=== PATIENT | male | born 1980 | race Two or more races ===

== ENCOUNTER 2020-09-21 16:35 | Emergency (ER) | payer OTHER, SELFPAY ==
[2020-09-21 17:00] VITALS: BP 118/75; PULSE 101; RESP 18; TEMP 36.7; O2SAT 95; BMI 40.8
--- NOTE | 2020-09-21 17:39 | ED.GENADULT ---
HPI - General Adult General Chief complaint: General Medical Stated complaint: lump on head Time Seen by Provider: 09/21/20 17:23 Source: patient Mode of arrival: ambulatory Limitations: no limitations History of Present Illness HPI narrative: 39 yo male here with lump to back of head x several days. No fevers, chills. Related Data Previous Rx's Medication Instructions Recorded sulfamethoxazole-trimethoprim 1 tab PO Q12H #14 tab 09/21/20 [Bactrim DS] Allergies Allergy/AdvReac Type Severity Reaction Status Date / Time doxycycline [DOXYCYCLINE] Allergy Intermediate LIP Verified 09/21/20 17:00 [place] Review of Systems Review of Systems: Yes all other systems are reviewed and are negative Constitutional: Constitutional: Reports no additional constitutional complaints, Denies body ache(s), Denies chills, Denies fever(s), Denies headache(s) and Denies weakness Eyes: Eyes: Reports no additional eye complaints and Denies change in vision ENT: Reports system reviewed and no additional complaints, except as documented, Denies dizziness, Denies headache(s), Denies nasal congestion, Denies nasal discharge and Denies neck pain Cardiovascular: Cardiovascular: Reports no additional cardiovascular complaints, Denies chest pain, Denies leg edema and Denies dyspnea Respiratory: Respiratory: Reports no additional respiratory complaints, Denies cough and Denies dyspnea Gastrointestinal: Gastrointestinal: Reports no additional gastrointestinal complaints, Denies abdominal pain, Denies diarrhea, Denies nausea and Denies vomiting Genitourinary: Genitourinary: Denies urinary incontinence Musculoskeletal: Musculoskeletal: Reports no additional musculoskeletal complaints, Denies back pain, Denies arthralgias, Denies joint swelling, Denies neck pain, Denies numbness and Denies tingling Integumentary/Breasts: Skin/Breast: Reports system reviewed and no additional complaints, except as docu, Reports swelling, Reports erythema and Denies rash Neurologic: Reports system reviewed and no additional complaints, except as documented, Denies Abnormal speech present, Denies dizziness, Denies headache(s), Denies numbness, Denies tingling and Denies weakness PMFSH Past Medical History Attestation statement: The following information was validated with the patient. Source: old records reviewed and nursing notes reviewed Medical History Asthma Obesity Surgical History History of appendectomy Social History Social History Advance Directives: No Advance Directives Information Provided: No Physical Exam Vital Signs: Vital Signs: Last Vital Signs Temp 98.1 F 09/21/20 17:00 Pulse 101 H 09/21/20 17:00 Resp 18 09/21/20 17:00 BP 118/75 09/21/20 17:00 Pulse Ox 95 09/21/20 17:00 Body Mass Index 40.8 Const: General: cooperative, healthy appearing, comfortable and no acute distress Orientation/consciousness: patient oriented x3 Limitations: no limitations HENMT: Head: Yes normal to inspection Head images: 1. local area of erythema, swelling and induration with tenderness Ears: hearing grossly normal bilaterally General nose exam: Normal external nose present Face and sinus: Yes normal facial exam Mouth: Normal oral and palatal mucosa present Throat: Yes posterior oropharynx normal Eyes: General: appearance normal, both eyes and all related structures Pupils: Equal, round and reactive pupils present Neck: Neck: Yes normal visual inspection Chest: Chest palpation & inspection: normal inspection of the chest Resp: Effort & Inspection: normal respiratory effort Auscultation: clear to auscultation bilaterally Cardio: Rate: regular rate Rhythm: regular rhythm Peripheral pulses: Peripheral pulses 2+ throughout GI: Inspection: Yes normal to inspection Palpation (GI): Soft to palpation and nontender Auscultation: normal bowel sounds Back/Spine/Pelvis: Thoracic/Lumbar Spine: thoracic and lumbar spine normal to inspection Skin: General skin exam: no rashes or lesions noted Neuro: General: patient oriented x3, no focal motor deficits and normal sensation to monofilament Cranial nerves: Yes Equal, round and reactive pupils present Cognition (Neuro): normal cognition Speech: No Abnormal speech present Gait exam (Neuro): Normal gait present Motor exam (neuro): 5/5 motor strength present throughout Extrem: General: Yes normal to inspection Course Course Course Narrative: Small abscess to the posterior head. See I and D note. Will start patient on oral antibiotic Reviewed worrisome signs and symptoms of when to return to the emergency department. Comfortable discharge home. Procedures Abscess I/D Site: scalp Local Anesthetic: lidocaine 2% Amount of anesthesia used (mL): 5 Technique: incised with blade Sent for culture/gram staining?: No Irrigation: No Packing used?: iodoform Complications: pain Medical Decision Making Medical Records Medical records reviewed: Yes I reviewed the patient's medical records. Lab Data Lab results reviewed: Yes I reviewed the patient's lab results. Discharge Plan Discharge Clinical Impression: Abscess Patient Disposition: Home, Self-Care Instructions: Abscess (ED) Additional Instructions: packing removal in 48 hrs Prescriptions: New sulfamethoxazole-trimethoprim [Bactrim DS] 800-160 mg tablet 1 tab PO Q12H Qty: 14 RF: 0 Referrals: Yfn Medeiros MD [Primary Care Provider] - 2 days Interventions: ED Discharge Assessment Last Done: 09/21/20 18:13 Discharge Date/Time: 09/21/20 18:16
[2020-09-21] MEDS: Lidocaine HCl 2 % MPF 5 ML VIAL SUBCUT (17:44)
--- NOTE | 2020-09-21 18:15 | PC.NURSE ---
ABSCESS CLEANED AND DRAINED AND PACKING PLACED BY SUMAN BENDER TO COVER AREA.
== END 2020-09-21 18:16 | disposition home or self-care (01) ==
LOC: HO.ED 17:39
PROVIDERS: Emergency Provider Internal Medicine; PCP Internal Medicine
DX: L02.811 Cutaneous abscess of head [any part, except face] (principal); R22.0 Localized swelling, mass and lump, head
CPT/HCPCS: 10060; 99283

== ENCOUNTER 2021-04-08 09:32 | Outpatient (REF) | payer OTHER, SELFPAY ==
[2021-04-08 09:41] LABS: MANUAL DIFF FLAG NO
[2021-04-08 10:00] LABS: Basophils Percent Auto 0.4 % (0-2); Eosinophils Absolute Auto 0.1 X10*3/uL (0.0-0.4); Eosinophils Percent Auto 1.2 % (0-4); Hematocrit 46.8 % (42.0-52.0); Hemoglobin 15.5 g/dl (14.0-18.0); Imm Gran Abs Auto 0.03 X10*3/uL (0.00-0.03); Imm Gran Pct Auto 0.4 % (0.0-0.4); Lymphocytes Absolute Auto 2.2 X10*3/uL (1.2-4.9); Lymphocytes Percent Auto 26.2 % (20-40); Mean Corpuscular HGB Conc 33.1 g/dl (31.0-36.0); Mean Corpuscular Volume 90.5 fL (80.0-98.0); Mean Platelet Volume 9.4 fL (9.4-12.4); Monocytes Percent Auto 12.5 % (2-11); Neutrophils Absolute Auto 4.9 x10*3/uL (2.0-8.3); Neutrophils Percent Auto 59.3 % (45-73); Platelet Count 258 X10*3/uL (160-400); Red Blood Count 5.17 X10*6/uL (4.60-5.80); Red Cell Distribution Width 12.5 % (11.0-16.0); White Blood Count 8.3 X10*3/uL (4.8-10.8)
[2021-04-08 10:28] LABS: Alanine Aminotransferase 35 U/L (0-40); Albumin Level 3.9 g/dL (3.5-5.0); Alkaline Phosphatase 56 U/L (39-117); Anion Gap 13 (12-20); Aspartate Amino Transferase 16 U/L (5-37); Bilirubin Total 0.5 mg/dL (0.0-1.0); Blood Urea Nitrogen 16 mg/dL (9-16); Calcium 9.1 mg/dL (8.4-10.2); Carbon Dioxide 26 mmol/L (22-29); Chloride 105 mmol/L (96-108); Cholesterol 138 mg/dL; Estimated Glomerular Filt Rate > 60; Glucose Fasting 90 mg/dL (60-99); HDL Cholesterol 35 mg/dL; LDL Cholesterol Calculated 82 mg/dl; Potassium 4.6 mmol/L (3.3-5.1); Sodium 139 mmol/L (135-145); Triglycerides 105 mg/dL
[2021-04-08 10:36] LABS: Estimated Average Glucose 140 mg/dL; Hemoglobin A1c % 6.5 %
[2021-04-08 10:56] LABS: TSH reflex Free T4 0.91 uIU/mL (0.32-4.0)
== END 2021-04-08 09:33 | disposition home or self-care (01) ==
LOC: HO.LAB 09:32
PROVIDERS: PCP Nurse Practitioner Family; Visit Provider Nurse Practitioner Family
DX: E78.00 Pure hypercholesterolemia, unspecified (principal); E11.9 Type 2 diabetes mellitus without complications; I10 Essential (primary) hypertension; G47.30 Sleep apnea, unspecified; G47.9 Sleep disorder, unspecified
CPT/HCPCS: 36415; 80053; 80061; 83036; 84443; 85025

== ENCOUNTER → 2021-05-11 15:15 | Outpatient (REF) | payer OTHER, SELFPAY | LOC: HO.SL 15:15 | PROVIDERS: Visit Provider Nurse Practitioner Family | DX: G47.30 Sleep apnea, unspecified (principal) | CPT/HCPCS: 95806 ==

== ENCOUNTER → 2021-05-21 09:58 | Outpatient (BNVA) | payer OTHER, SELFPAY | PROVIDERS: PCP Nurse Practitioner Family; Visit Provider Physician Assistant Surgical | DX: E66.01 Morbid (severe) obesity due to excess calories (principal); Z68.42 Body mass index [BMI] 45.0-49.9, adult | CPT/HCPCS: 99202 ==

== ENCOUNTER 2021-06-08 09:36 | Outpatient (REF) | payer OTHER, SELFPAY ==
--- NOTE | ~2021-06-08 | XR_ITS ---
EXAMINATION: XR CHEST CLINICAL INFORMATION: Morbid obesity due to excess calories. Sleep apnea. Shortness of breath. COMPARISON: 05/01/2018 TECHNIQUE: 2 views of the chest were obtained. FINDINGS: The lungs are well expanded. There is no focal consolidation, edema, or effusion. No pneumothorax. The cardiomediastinal silhouette is within normal limits. No acute osseous abnormality. XR/XR chest 2V IMPRESSION: Clear lungs.
--- NOTE | 2021-06-08 09:46 | ECG_ITS ---
Test Reason : e66.01 Blood Pressure : / mmHG Vent. Rate : 097 BPM Atrial Rate : 097 BPM P-R Int : 142 ms QRS Dur : 082 ms QT Int : 338 ms P-R-T Axes : 050 074 026 degrees QTc Int : 429 ms Normal sinus rhythm Normal ECG When compared with ECG of 11-SEP-2008 05:48, No significant change was found Referred By: Emile Jauregui Electronically Signed By:KUNAL WATERS MD
[2021-06-08 11:14] LABS: C Reactive Protein 0.95 mg/dL (< or = 0.50); Iron 84 mcg/dL (45-160); Percent Iron Saturation 30 % (15-50); Total Iron Binding Capacity 284 mcg/dL (228-428); Unsaturated Iron Binding 200 ug/dL
[2021-06-08 11:23] LABS: Ferritin 83 ng/mL (20-250)
[2021-06-08 12:32] LABS: Folate 12.7 ng/mL (> or = 4.0); Vitamin B12 645 pg/mL (200-900)
[2021-06-09 13:27] LABS: Calcium (PTHI) 8.4 mg/dL (8.6-10.3); PTHI 73 pg/mL (16-77)
[2021-06-12 13:41] LABS: Zinc 69 mcg/dL (60-130)
[2021-06-13 09:07] LABS: Vitamin B1 13 nmol/L (8-30)
[2021-06-14 22:36] LABS: Vitamin A 45 mcg/dL (38-98)
== END 2021-06-08 09:37 | disposition home or self-care (01) ==
LOC: HO.LAB 09:36
PROVIDERS: PCP Nurse Practitioner Family; Visit Provider Physician Assistant Surgical
DX: Z01.818 Encounter for other preprocedural examination (principal); E66.01 Morbid (severe) obesity due to excess calories
CPT/HCPCS: 36415; 71046; 82306; 82607; 82728; 82746; 83540; 83970; 84425; 84590; 84630; 86140; 93005

== ENCOUNTER 2021-06-09 09:22 | Outpatient (REF) | payer OTHER, SELFPAY ==
[2021-06-12 11:07] LABS: H Pylori Breath Test Positive (Negative)
== END 2021-06-09 09:23 | disposition home or self-care (01) ==
LOC: HO.LNP 09:22
PROVIDERS: Visit Provider Physician Assistant Surgical
DX: E66.01 Morbid (severe) obesity due to excess calories (principal)
CPT/HCPCS: 83013

== ENCOUNTER → 2021-06-09 10:54 | Outpatient (BNVA) | payer OTHER, SELFPAY | PROVIDERS: PCP Nurse Practitioner Family; Referring Provider Nurse Practitioner Family; Visit Provider Dietitian, Registered | DX: E66.01 Morbid (severe) obesity due to excess calories (principal); Z68.43 Body mass index [BMI] 50.0-59.9, adult; Z71.3 Dietary counseling and surveillance; Z11.0 Encounter for screening for intestinal infectious diseases | CPT/HCPCS: 97802; 99211 ==

== ENCOUNTER → 2021-06-10 08:20 | Outpatient (BNVA) | payer OTHER, SELFPAY | PROVIDERS: PCP Nurse Practitioner Family; Visit Provider Surgery | DX: Z13.89 Encounter for screening for other disorder (principal) ==

== ENCOUNTER → 2021-06-30 08:20 | Outpatient (BNVA) | payer OTHER, SELFPAY | PROVIDERS: PCP Nurse Practitioner Family; Referring Provider Physician Assistant Surgical; Visit Provider Dietitian, Registered | DX: Z13.89 Encounter for screening for other disorder (principal) ==

== ENCOUNTER → 2021-07-08 08:20 | Outpatient (BNVA) | payer OTHER, SELFPAY | PROVIDERS: PCP Nurse Practitioner Family; Referring Provider Physician Assistant Surgical; Visit Provider Dietitian, Registered | DX: E66.01 Morbid (severe) obesity due to excess calories (principal) | CPT/HCPCS: 97803 ==

== ENCOUNTER 2021-07-09 09:06 | Outpatient (REF) | payer OTHER, SELFPAY | END 2021-07-09 09:07 | disposition home or self-care (01) | LOC: HO.US 09:06 | PROVIDERS: PCP Nurse Practitioner Family; Visit Provider Surgery | DX: Z13.89 Encounter for screening for other disorder (principal) ==

== ENCOUNTER → 2021-08-11 14:00 | Outpatient (BNVA) | payer OTHER, SELFPAY | PROVIDERS: PCP Nurse Practitioner Family; Visit Provider Counselor Mental Health | DX: F33.0 Major depressive disorder, recurrent, mild (principal); F50.81 Binge eating disorder; E66.01 Morbid (severe) obesity due to excess calories | CPT/HCPCS: 90791 ==

== ENCOUNTER 2021-08-27 09:25 | Outpatient (REF) | payer OTHER, SELFPAY ==
[2021-08-30 15:44] LABS: H Pylori Breath Test Negative (Negative)
== END 2021-08-27 09:26 | disposition home or self-care (01) ==
LOC: CF 09:25
PROVIDERS: PCP Nurse Practitioner Family; Visit Provider Physician Assistant Surgical
DX: Z01.818 Encounter for other preprocedural examination (principal)
CPT/HCPCS: 36415; 83013; 99211

== ENCOUNTER 2021-09-14 08:26 | Outpatient (REF) | payer OTHER, SELFPAY ==
--- NOTE | ~2021-09-14 | US_ITS ---
EXAMINATION: US COMPLETE ABDOMEN WITH LIVER ELASTOGRAPHY CLINICAL INFORMATION: Obesity COMPARISON: Previous CT of the abdomen and pelvis January 2019 TECHNIQUE: Real-time imaging of the abdominal viscera. Noninvasive ultrasound liver fibrosis assessment is performed using [employer]on Elast[employer] point quantification shear wave elastography (2D-SWE) with a C5-2 MHz transducer. Multiple elastography samples are obtained. FINDINGS: PANCREAS: The visualized pancreatic head and body are normal in appearance. The remainder of the pancreas is obscured from visualization by the overlying bowel gas. ABDOMINAL AORTA: The proximal, middle, and distal aortic segments are normal in caliber. INFERIOR VENA CAVA: Visualized portions are normal. LIVER: Liver echotexture is increased probably representing fatty infiltration. The liver is normal in contour and upper normal in size. Areas of focal fatty sparing adjacent to the gallbladder. No focal lesion or intrahepatic biliary duct dilatation. The right lobe measures 18 cm in length. The left lobe measures 16 cm in length. Portal flow is normal/hepatopedal Shear wave liver elastography median stiffness is 1.8 m/s (reference: normal median stiffness is 1.3 m/s or less). IQR/median stiffness to assess sampling precision is 0.04 (reference: good quality data set is IQR/median stiffness of 0.15 or less). GALLBLADDER: There is ring down artifact suggestive of adenomyomatosis of the gallbladder wall. The gallbladder is physiologically distended without evidence of stones, sludge, polyps, wall thickening or pericholecystic fluid. COMMON BILE DUCT: Normal in caliber measuring 0.2 cm in diameter. RIGHT KIDNEY: There is a 1.5 x 2 cm cyst in the midpole.. No hydronephrosis. No renal calculi. The kidney measures 14 cm in maximum dimension. LEFT KIDNEY: Normal. No hydronephrosis. No renal calculi or focal parenchymal lesions. The kidney measures 14 cm in maximum dimension. SPLEEN: Normal. The spleen measures 11 cm in maximum dimension. FREE FLUID: None. US/US abdomen comp w elastography IMPRESSION: 1. Impression: echogenic liver suggestive of fatty infiltration. Adenomyomatosis of the gallbladder wall. Small right renal cyst. Limited visualization of the tail of the pancreas. 2. Liver elastography: Adequate liver sampling. Suggestive of compensated advanced chronic liver disease but need further test for confirmation. REFERENCE: Society of Radiologists in Ultrasound Liver Stiffness Thresholds (2020): LIVER STIFFNESS THRESHOLDS: *Liver Stiffness equal or less than 1.3 m/s: High probability of being normal. *Liver Stiffness less than 1.7 m/s: In the absence of other known clinical signs, rules out compensated advanced chronic liver disease. *Liver Stiffness 1.7-2.1 m/s: Suggestive of compensated advanced chronic liver disease but need further test for confirmation. *Liver Stiffness over 2.1 m/s: Rules in compensated advanced chronic liver disease. *Liver Stiffness over 2.4 m/s: Suggestive of clinically significant portal hypertension. QUALITY OF DATA SET: *IQR/Median value equal or less than 0.15 implies a quality data set. *IQR/Median value over 0.15 implies a poor quality data set. SIGNIFICANT CHANGE FROM PRIOR EXAM: Significant change if liver stiffness measurement is 10% or greater from prior exam. OTHER CONSIDERATIONS: The stage of liver fibrosis may be overestimated in the setting of acute hepatitis, liver inflammation, elevated liver function tests, hepatic vascular congestion, obstructive cholestasis, non-fasting state, and infiltrative diseases such as amyloidosis and lymphoma. In some patients with NAFLD, the liver stiffness thresholds for compensated advanced chronic liver disease may be lower. In causes other than viral hepatitis and NAFLD, liver stiffness thresholds are not well established.
--- NOTE | ~2021-09-14 | FL_ITS ---
EXAMINATION: XR FLUOROSCOPY UPPER GI WITH AIR CLINICAL INFORMATION: Obesity COMPARISON: None TECHNIQUE: Upper GI was performed using thin and thick barium and effervescent granules. FINDINGS: Esophageal motility is normal. No hernia or reflux is seen. The stomach and duodenum are normal. No fold thickening, mass, ulcer or stricture is seen. FLUOROSCOPY TIME: 0.5 DOSE AREA PRODUCT: 7.7 rubi per centimeter squared. 18 saved fluoroscopic images. FL/FL upper GI w air IMPRESSION: Unremarkable examination.
== END 2021-09-14 08:27 | disposition home or self-care (01) ==
LOC: HO.US 08:26
PROVIDERS: Visit Provider Surgery
DX: E66.01 Morbid (severe) obesity due to excess calories (principal)
CPT/HCPCS: 74246; 76705; 76981

== ENCOUNTER 2021-10-07 11:27 | Emergency (ER) | payer OTHER, SELFPAY ==
[2021-10-07 12:29] VITALS: BP 132/78; PULSE 90; RESP 16; TEMP 36.6; O2SAT 94; BMI 30.7
--- NOTE | 2021-10-07 13:08 | ED_ITS ---
HPI - Wound/Laceration General Chief Complaint: Wound/Laceration Stated Complaint: cut finger R hand inj Time Seen by Provider: 10/07/21 12:47 Source: patient Mode of arrival: ambulatory History of Present Illness HPI narrative: 40-year-old male with a past medical history of asthma and obesity presenting to the emergency department with a right index finger laceration. The patient states that he was cutting some sheet rock with a new utility knife, when he accidentally cut his right index finger. He said he grabbed a t-shirt to stop the bleeding and came right to the ED. Patient reports getting a tetanus shot 3- 4 years ago, following another work injury. Patient denies any fever, chills, shortness of breath, or chest pain. Onset (ago): hour(s) Related Data Previous Rx's Medication Instructions Recorded albuterol sulfate 90 mcg/actuation 2 inh inhalation Q6-8H PRN 04/08/21 aerosol inhaler shortness of breath or wheezing #8.5 grams melatonin 3 mg tablet 3 mg PO BEDTIME PRN sleep #30 tabs 04/08/21 cholecalciferol (vitamin D3) 125 125 mcg PO DAILY #30 caps 06/08/21 mcg (5,000 unit) capsule varenicline 1 mg tablet 1 mg PO BID #56 tabs 06/10/21 amoxicillin 500 mg capsule 1,000 mg PO Q12H 14 days #56 caps 06/12/21 clarithromycin 500 mg tablet 500 mg PO Q12H 14 days #28 tabs 06/12/21 omeprazole 20 mg capsule,delayed 20 mg PO BID 14 days #28 caps 06/12/21 release albuterol sulfate 2.5 mg/3 mL 2.5 mg (3 mL) inhalation Q6-8H PRN 08/14/21 (0.083 %) solution for nebulization bronchospasm #75 mL bacitracin 500 unit/gram topical 1 appl topical BID #30 grams 10/07/21 ointment Allergies Allergy/AdvReac Type Severity Reaction Status Date / Time doxycycline [DOXYCYCLINE] Allergy Intermediate LIP Verified 05/21/21 10:56 [place] Review of Systems Review of Systems: Constitutional: No Weight loss, No Fever, No Chills ENT/Mouth: No Ear Pain, No Nasal Congestion, No Sinus Pain Cardiovascular: No Chest Pain, No SOB Respiratory: No Cough, No Sputum, No Wheezing Gastrointestinal: No Nausea, No Vomiting, No Diarrhea, No Constipation, No Abdominal pain Genitourinary: No Dysuria, No Urinary Frequency, No Hematuria, No Urinary Incontinence, No Urgency, No Flank Pain Musculoskeletal: No joint pain, No Myalgias, No Joint Swelling Skin: +Laceration Right Index Finger Neuro: No Weakness, No Numbness, No Paresthesias Yes all other systems are reviewed and are negative Constitutional: Constitutional: Reports as per [facility] Past Medical History Attestation statement: The following information was validated with the patient. Medical History Asthma Obesity Surgical History History of appendectomy Family History Family History Mother Mental health disorder Substance use disorder Father Mental health disorder Substance use disorder Maternal Grandfather Hypertension Diabetes Hyperlipidemia Paternal Grandfather Myocardial infarct Diabetes Hyperlipidemia Hypertension Paternal Uncle Colon cancer, Onset Age: 50 Maternal Uncle Cancer, Onset Age: 70 Maternal Aunt Substance use disorder Social History Social History (Updated 05/21/21 @ 10:59 by [employer]) Housing: House Alcohol intake: current Alcohol intake frequency: holidays/special occasions only Patient Tobacco Use Status: Current everyday Tobacco user Tobacco use type: Cigarette Cigarettes Per Day: 10 e-Cigarette/Vaping Use: Never Used Second Hand Smoke Exposure: No Advance Directives: No Advance Directives Information Provided: No Current occupational status: employed Cognitive needs: No Hearing needs: No Vision needs: No Physical Exam Vital Signs: Vital Signs: Last Vital Signs Temp 97.8 F 10/07/21 12:29 Pulse 90 10/07/21 12:29 Resp 16 10/07/21 12:29 BP 132/78 10/07/21 12:29 Pulse Ox 94 10/07/21 12:29 O2 Del Method 10/07/21 12:29 BMI result Body Mass Index 30.7 Const: General: cooperative, healthy appearing and no acute distress Orientation/consciousness: patient oriented x3 Limitations: no limitations HEENT: Head: Yes normal to inspection and Yes atraumatic Ears: hearing grossly normal bilaterally General nose exam: Normal external nose present Face and sinus: Yes normal facial exam Eyes: General: appearance normal, both eyes and all related structures EOM: EOMs intact bilaterally Neck: Neck: Yes normal visual inspection and Yes no meningeal signs Resp: Effort & Inspection: normal respiratory effort and no respiratory distress Auscultation: clear to auscultation bilaterally Cardio: Rate: regular rate Heart sounds: S1 normal heart sound present and S2 normal heart sound present Skin: Rashes: no rashes Wounds: no wounds Neuro: General: patient oriented x3, tone normal and no meningeal signs Gait exam (Neuro): Normal gait present Extrem: Other: +1cm superfiical laceration noted to right index finger radial aspect partially over PIP. +full ROM intact to hand and digits. sensation intact throughout. Finger to thumb opposition intact. capillary refill WNL General: Yes full ROM and Yes capillary refill normal MDM - Wound/Laceration MDM Narrative Medical decision making narrative: 40-year-old male with a past medical history of asthma and obesity presenting to the emergency department with a right index finger laceration. Vital signs stable and otherwise unremarkable. Laceration on right index finger appears mostly superficial, with skin flap needing repair. No evidence of injury to underlying structures. Lower suspicion for tendon injury Plan: -Wound closure with suture and dressing -Follow up in 7-10 days for suture removal Differential Diagnosis Differential diagnosis: Likely laceration Medical Records Attestation: I reviewed the patient's medical records. Lab Data Attestation: I reviewed the patient's lab results. Procedures Laceration Laceration 1: Site: hand Side (If applicable): right Size (cm): 1 Description: linear and flap Depth: simple, single layer Local Anesthetic: lidocaine 1% Amount of anesthesia used (mL): 3.5 Skin layer closed with: nylon Size (cm): 4-0 Number of sutures: 1 Technique: simple, interrupted Discharge Plan Discharge Clinical Impression: Laceration Patient Disposition: Home, Self-Care Instructions: Finger Laceration (ED) Additional Instructions: Your wounds were repaired today in the emergency department. Keep dry and clean. You need to return to any emergency department or urgent care in 7-10 days for suture removal Apply bacitracin and or Neosporin daily Once sutures are removed apply anti scar cream like Mederma If area begins look infected, is red, there is drainage, streaking, or you have fever please return to the emergency department. Prescriptions: New bacitracin 500 unit/gram ointment 1 appl topical BID Qty: 30 0RF No Action cholecalciferol (vitamin D3) 125 mcg (5,000 unit) capsule 125 mcg PO DAILY Qty: 30 3RF amoxicillin 500 mg capsule 1,000 mg PO Q12H 14 Days Qty: 56 0RF clarithromycin 500 mg tablet 500 mg PO Q12H 14 Days Qty: 28 0RF omeprazole 20 mg capsule,delayed release(DR/EC) 20 mg PO BID 14 Days Qty: 28 0RF albuterol sulfate 2.5 mg /3 mL (0.083 %) solution for nebulization 2.5 mg inhalation Q6-8H PRN (Reason: bronchospasm) Qty: 75 0RF albuterol sulfate 90 mcg/actuation HFA aerosol inhaler 2 inh inhalation Q6-8H PRN (Reason: shortness of breath or wheezing) Qty: 8.5 1RF melatonin 3 mg tablet 3 mg PO BEDTIME PRN (Reason: sleep) Qty: 30 1RF varenicline 1 mg tablet 1 mg PO BID Qty: 56 1RF Referrals: Jorge Carmichael MD [Emergency Provider] - 1 week (7-10 days for suture removal) Stand Alone Forms: Work/School Release
[2021-10-07] MEDS: Lidocaine HCl 1 % MPF 2 ML VIAL INFILTRATI ×2 (15:18)
== END 2021-10-07 15:29 | disposition home or self-care (01) ==
PROVIDERS: Emergency Provider Emergency Medicine Emergency Medical Services
DX: S61.210A Laceration without foreign body of right index finger without damage to nail, initial encounter (principal); W26.0XXA Contact with knife, initial encounter; Y93.9 Activity, unspecified; Y92.9 Unspecified place or not applicable; Y99.9 Unspecified external cause status; F17.210 Nicotine dependence, cigarettes, uncomplicated; Z71.6 Tobacco abuse counseling; Z79.899 Other long term (current) drug therapy
CPT/HCPCS: 12001; 99283; 99284

== ENCOUNTER 2021-10-26 09:29 | Outpatient (REF) | payer OTHER, SELFPAY ==
[2021-10-26 09:50] LABS: MANUAL DIFF FLAG NO
[2021-10-26 10:02] LABS: Basophils Percent Auto 0.5 % (0-2); Eosinophils Absolute Auto 0.1 X10*3/uL (0.0-0.4); Eosinophils Percent Auto 1.8 % (0-4); Hematocrit 47.1 % (42.0-52.0); Imm Gran Abs Auto 0.01 X10*3/uL (0.00-0.03); Imm Gran Pct Auto 0.2 % (0.0-0.4); Mean Corpuscular Hemoglobin 30.5 pg (27.0-33.0); Mean Corpuscular Volume 89.7 fL (80.0-98.0); Mean Platelet Volume 9.8 fL (9.4-12.4); Monocytes Absolute Auto 0.7 X10*3/uL (0.1-1.2); Monocytes Percent Auto 11.3 % (2-11); Neutrophils Absolute Auto 3.6 x10*3/uL (2.0-8.3); Neutrophils Percent Auto 55.2 % (45-73); Platelet Count 236 X10*3/uL (160-400); Red Blood Count 5.25 X10*6/uL (4.60-5.80); Red Cell Distribution Width 13.1 % (11.0-16.0); White Blood Count 6.6 X10*3/uL (4.8-10.8)
[2021-10-26 10:08] LABS: Prothrombin Time 11.2 SEC (10.0-13.1)
[2021-10-26 10:10] LABS: Partial Thromboplastin Time 30.6 SEC (26.0-36.4)
[2021-10-26 10:16] LABS: Estimated Average Glucose 114 mg/dL; Hemoglobin A1c % 5.6 %
[2021-10-26 10:25] LABS: Alanine Aminotransferase 34 U/L (0-40); Alkaline Phosphatase 54 U/L (39-117); Anion Gap 15 (12-20); Aspartate Amino Transferase 19 U/L (5-37); Bilirubin Total 0.5 mg/dL (0.0-1.0); Blood Urea Nitrogen 11 mg/dL (9-16); C Reactive Protein 0.34 mg/dL (< or = 0.50); Calcium 8.9 mg/dL (8.4-10.2); Carbon Dioxide 24 mmol/L (22-29); Chloride 105 mmol/L (96-108); Cholesterol 132 mg/dL; Estimated Glomerular Filt Rate > 60; Glucose Random 97 mg/dL (60-115); HDL Cholesterol 42 mg/dL; LDL Cholesterol Calculated 74 mg/dl; Potassium 3.9 mmol/L (3.3-5.1); Sodium 140 mmol/L (135-145); Total Protein 6.9 g/dL (6.5-8.0); Triglycerides 83 mg/dL
[2021-10-26 10:47] LABS: TSH reflex Free T4 0.81 uIU/mL (0.32-4.0)
== END 2021-10-26 09:30 | disposition home or self-care (01) ==
LOC: HO.LAB 09:29
PROVIDERS: Visit Provider Physician Assistant Surgical
DX: Z01.818 Encounter for other preprocedural examination (principal); E66.01 Morbid (severe) obesity due to excess calories
CPT/HCPCS: 36415; 80053; 80061; 83036; 84443; 85025; 85610; 85730; 86140

== ENCOUNTER 2021-10-27 06:31 | Inpatient (IN) | payer OTHER, SELFPAY ==
[2021-10-14 09:23] VITALS: BMI 44.3
--- NOTE | 2021-10-24 15:38 | P.HPSUR_ITS ---
Pre-Procedural Eval Section A Date of Service: 10/24/21 The patient is an INPATIENT: Yes The History & Physical has been completed within 30 days and I have reviewed it.: Yes Section B Chief Complaint: obesity Relevant Family History (Specify if Yes): No Relevant Social History: None Present Medications: None Medical History: No relevant PMH History of Previous Operations: No relevant previous surgery Allergies: Allergies Allergy/AdvReac Type Severity Reaction Status Date / Time doxycycline [DOXYCYCLINE] Allergy Intermediate LIP Verified 10/14/21 09:22 [place] Review of Systems Sugical H&P ROS: Negative: Constitution, Cardiovascular, Respiratory, Neurological, Psychiatric, Hem-Onc, Allergic/Immunologic, Gastrointestinal, Genitourinary, Musculoskeletal, Integumentary, Endocrine and Eyes/Ears/Nose /Throat Exam Surgical H&P Exam: Normal: HEENT, Normal: Heart, Normal: Lungs, Normal: Extremities, Normal: Abdomen, Normal: Skin and Normal: Neurological Plan Diagnosis/Plan: Unchanged I have reviewed the history and physical and performed a pertinent physical examination on my patient. No changes have occurred unless specified.
[2021-10-26 13:52] LABS: COVID-19 Test Negative (Negative); IDNOW Serial# 9DB6401D
[2021-10-27] VITALS (15 sets, daily range): BP systolic 126–156; BP diastolic 74–90; PULSE 70–106; RESP 15–21; TEMP 36.3–37.6; O2SAT 92–100
[2021-10-27] MEDS: Lactated Ringers 1,000 ML 999 ML IV (07:00)
--- NOTE | 2021-10-27 07:26 | HO.ANESPROP2 ---
HPI - Anesthesia Eval Consult details Narrative: 41 yo male patient for laparoscopic sleeve gastrectomy, possible diaphragmatic hernia repair, possible ventral hernia repair, possible open PMFSH Active Problems Active Problems: All Active Problems (Updated 10/14/21 @ 09:27 by Loreto Alfaro RN) Encounter to establish care (Acute) Intermittent asthma (Acute) Sleep apnea (Acute). Just got CPAP machine. Used for 5 days BMI 50.0-59.9, adult (Acute) Difficulty sleeping (Acute) Tachycardia (Acute) Morbid obesity (Acute) Severe sleep apnea (Acute) Smoker (Acute) Mild recurrent major depression (Acute) Binge eating disorder (Acute) Pre-op evaluation (Acute) Past Medical History Medical History (Updated 10/14/21 @ 09:27 by Loreto Alfaro RN) Anxiety Asthma Depression Hx of heartburn Obesity ADELE (obstructive sleep apnea) Family History Family History Mother Mental health disorder Substance use disorder Father Mental health disorder Substance use disorder Maternal Grandfather Hypertension Diabetes Hyperlipidemia Paternal Grandfather Myocardial infarct Diabetes Hyperlipidemia Hypertension Paternal Uncle Colon cancer, Onset Age: 50 Maternal Uncle Cancer, Onset Age: 70 Maternal Aunt Substance use disorder Family history of problems with anesthesia: No Surgical History Surgical History History of appendectomy History of Problems with Anesthesia: No Social History Social History Housing: House Are you a primary career placement specialist to a significant other at home: No Do you presently have visiting nurse or other home services: No Alcohol intake: current Alcohol intake frequency: holidays/special occasions only Patient Tobacco Use Status: Current everyday Tobacco user Tobacco use type: Cigarette Cigarettes Per Day: 2 Smoked in Last 30 Days: Yes e-Cigarette/Vaping Use: Never Used Second Hand Smoke Exposure: No Use of substances other than those prescribed or required for medical reasons: No Have you been hit, kicked, punched, or otherwise hurt by someone within the past year? If so, by whom?: No Are you DNR?: No Advance Directives: No Advance Directives Information Provided: Yes Advance Directives on File: No Recently lost weight without trying: No Nutrition Risks: No Nutritional Risk Poor oral hygiene: No Current occupational status: employed Cognitive needs: No Hearing needs: No Vision needs: No Meds Allergies Allergy/AdvReac Type Severity Reaction Status Date / Time doxycycline [DOXYCYCLINE] Allergy Intermediate LIP Verified 10/14/21 09:22 [place] Active Medications: Current Medications Albuterol Sulfate (Albuterol Sulfate (0.083%) 2.5 Mg/3 Ml Vial.Neb) 2.5 mg INHALE ONCE PRN PRN Reason: Shortness of Breath/Wheezing Lactated Ringer's (Lr) 1,000 mls @ 999 mls/hr IV .Q1H1M [facility] Stop: 10/27/21 08:15 Last Admin: 10/27/21 07:00 Dose: 999 mls/hr Lactated Ringer's (Lr) 1,000 mls @ 50 mls/hr IVCONT .Q20H [facility] Exam Exam Date and Time: October 27, 2021 0726 Height,Weight and Vital Signs: Height 5 ft 10 in Weight 140.16 kg Last Vital Signs Temp 97.3 F 10/27/21 06:59 Pulse 83 10/27/21 06:59 Resp 18 10/27/21 06:59 BP 138/78 10/27/21 06:59 Pulse Ox 95 10/27/21 06:59 O2 Del Method 10/27/21 06:59 Pertinent Lab Results Pertinent Lab Results: Laboratory Tests 10/26/21 10/26/21 09:45 13:05 COVID-19 ([facility]) Negative COVID-19 Clin Com See Note Blood Type A Positive Antibody Screen NEGATIVE Airway Mallampati Class: III TM Dist: >3cm Neck ROM: Full Loose/Missing/Broken Teeth: No (Patient denies) Heart: RRR Lungs: CTAB S/p nebulizer treatment Assessment and Plan Assessment Anesthesia Assessment: Anesthesia Plan Discussed and Chart Reviewed Final Anesthetic Review Family History of Problems with Anesthesia: No History of Problems with Anesthesia: No NPO: Yes ASA Class: III Final Preanesthetic Review: No Changes in Pt Med Stat, Meds/Allgs Chart Reviewed, Consent Obtained/Reviewed and Anes Risks/Benef Reviewed Patient Risk: Intermediate Procedure Risk: Intermediate Assessment/Block/Sedation in SS: Assess/Block/Sedation-SS Anesthetic Plan Anesthetic Plan: GA Disposition: Standard PACU
[2021-10-27] MEDS: Albuterol Sulfate (0.083%) 2.5 MG/3 ML VIAL.NEB INHALE (07:30)
--- NOTE | 2021-10-27 07:35 | PHA.MEDREC ---
Pharmacy Consult ? Medication Reconciliation Pharmacy has completed the medication reconciliation.
--- NOTE | 2021-10-27 10:38 | P.BOP_ITS ---
Brief Operative Note Date of Service: 10/27/21 Pre-op diagnosis: Morbid obesity with comorbidities (see below) Post-op diagnosis: same Procedure: INITIAL PATIENT BMI ON PRESENTATION AT OUR OFFICE:49.6 kg/m2 LAST BMI BEFORE SURGERY: 45.1 kg/m2 COMORBIDITIES: sleep apnea on CPAP, liver fibrosis, hepatomegaly, gallbladder adenomyomatosis ?The patient presented to the Weight Management Program with significant obesity that was negatively impacting the patient's comorbidities as listed above.? The program is a phased program with a special focus on preoperative medical weight management to promote substantial weight loss and prepare the patients for the second phase of the program: bariatric surgery. The patient participated in an intensive weekly lifestyle ?intervention and exercise program during which the patient ?has lost between the initial office visit and the last preoperative visit 34.5lbs, or 9.98% of initial actual body weight. It was deemed appropriate for the patient to now have bariatric surgery. In light of the current Covid-19 pandemic and the well documented strong association of obesity and increased risk of worse outcomes if infected with Covid-19 (REFERENCES: https://pubmed.ncbi.nlm.nih.gov/83297220/ ,? https://pubmed.ncbi.nlm.nih.gov/43968620/ ), any delay in undergoing bariatric surgery may lead to the patient's worsening health condition and increased?risk of more severe Covid-19 disease if infected. In addition a recent?study from [facility] published in [facility] on 03/02/2021 ([email or web address]) found that, among patients with obesity, substantial weight loss achieved with surgery was associated with improved outcomes of COVID-19 infection. The findings suggest that obesity can be a modifiable risk factor for the severity of COVID-19 infection. In addition, the patient met the BMI-criteria for bariatric surgery based on the BMI on initial presentation. The patient should not be penalized for achieving such weight loss because ?it is not sustainable long-term without surgical intervention and it was achieved in preparation for bariatric surgery ?under my direction and based on my published research ([email or web address]).[email or web address] and? https://www.soard.org/article/[email or web address](20)77460-X/pdf ) ?that a 10% preoperative weight loss improves long-term weight loss after surgery and reduces perioperative complications.? Insurance carriers such as [facility] have endorsed my recommendations ?and have included in their policies criteria to include a 10% preoperative weight loss requirement. PROCEDURE: Esophago-gastroscopy, laparoscopic sleeve gastrectomy and laparoscopic gastropexy INDICATIONS: This is a 41 year-old male who was electively scheduled for laparoscopic, possibly open sleeve gastrectomy. The risks and complications of the procedure were discussed with the patient in advance, particularly the p ossibility of ; pulmonary embolism; staple line leak; bleeding; GERD; cardiac, pulmonary, or renal complications; as well as long-term problems such as insufficient weight loss, vitamin deficiency, strictures, or ulcers. The patient understood all the risks, and was in agreement to proceed with surgery. DESCRIPTION OF PROCEDURE: After informed consent was obtained from the patient, the patient was given preoperative antibiotics, and was transferred to the operating room. After successful induction of general anesthesia, pneumatic compression devices were placed on both lower extremities. An upper endoscopy was performed next. The oropharynx and esophagus appeared to be within normal limits. There was no diaphragmatic hernia present consistent with the findings of the preoperative upper GI. The stomach was entered. Then after all fluid and air were suctioned and the stomach was fully decompressed, the scope was withdrawn and secured in the mid esophagus. The patient was then prepped and draped in the usual sterile manner, and abdominal access was established at the right upper quadrant with the Johan technique. A 12 mm blunt port was inserted, and the abdomen was insufflated with CO2 to a pressure of 15 mmHg. Under direct visualization, additional ports were placed, specifically two 5 mm Versi-step ports to the left upper quadrant, and a 5 mm Versi-Step port to the right upper quadrant. 1% lidocaine plain was used to infiltrate all port sites as well as all fascia defects. Using the EndoClose suture passer device, I placed a #1 Polysorb tie across the falciform ligament in order to retract it up against the abdominal wall and prevent injury of the ligament with our instruments during the procedure. Following that, the patient was placed in a steep reverse Trendelenburg position. An additional 5 mm port was placed to the right flank for the Mediflex retractor that was used to retract the left lobe of the liver. The gastro-esophageal fat pad was opened with the ultrasonic device (Thunderbeat, Olympus) and the anterior esophagus and hiatus were exposed. The angle of His was opened with the ultrasonic device the fundus of the stomach from any diaphragmatic and splenic attachments. I then opened the gastrocolic ligament between the transverse colon and the greater curvature of the stomach with the ultrasonic device to enter the lesser sac and facilitate the ligation of the short gastric vessels. I started at a mid-point along the greater curvature and using the Thunderbeat, all short gastric vessels were divided all the way to the angle of His until the left kristine was completely dissected at its entirety. I then divided the gastro-colic ligament distally to a distance of about 3-4 cm proximal to the pylorus. The stomach was then divided transversely with one Endo MAGGIE-45 purple, three MAGGIE-60 purple loads, two MAGGIE-45 orange loads and one MAGGIE-60 articulating orange loads using the AEON stapler and loads. Every effort was made that the gastric sleeve had a tubular shape and an even caliber throughout. Once the sleeve resection was completed, the staple line of the gastric sleeve was reinforced with Hemoclips. The resected stomach was retrieved without difficulty from the Johan port. A gastropexy was then performed in order to prevent postoperative GERD and partial gastric volvulus. Several interrupted 2.0 Surgidac sutures were placed between the sleeve's staple line and the previously divided greater omentum and gastro-colic ligament using the Endo-Stitch device. ?An upper endoscopy was performed. There was no narrowing at the GE junction. The scope was easily advanced all the way to the pylorus which was clearly visualized. There was no narrowing anywhere and the sleeve's caliber was even throughout. The sleeve's staple line was inspected and there was no evidence of ischemia, bleeding or dehiscence. At that point the gastroscope was withdrawn from the patient?s mouth while we were decompressing the bowel and the stomach from any remaining air. I looked into the lesser sac to see how the sleeve was situating and it was situating well. There was no bleeding from the staple line, spleen, or short gastric vessels. The Mediflex retractor was removed, and the undersurface of the liver was inspected and there was no bleeding. The patient was placed in supine position. I closed the fascial defect of the 12 mm port site with a figure of eight #1 Polysorb suture. Then 60cc of Ropivacaine plain with 10 mg of Dexamethasone were used to infiltrate the fascial closure as well as all skin incisions. A total of 7ml of Zynrelef was applied in the Johan port. At this point, the abdomen was deflated, all ports were removed under direct vision, and no bleeding was noted from any of the port sites. The skin incisions were irrigated with saline and were closed with 4-0 absorbable monofilament sutures. Steri- Strips and OpSites were used to cover all incisions. The patient was extubated and was transferred in stable condition to the recovery room for further care. I was present and performed all kendall parts of the procedure. Mr. Jauregui was the medical assistant secretary. There were no residents to assist with this case. Roque Pryor MD, PhD, FACS Surgeon: Ten Pryor MD Anesthesia: GETA, local and other (TAP block & 7ml of Zynrelef) Was an Certified Novell Engineer used for this Procedure?: Yes Certified Novell Engineer: Emile Jauregui Estimated blood loss (mL): 10 IV fluids (mL): 3,000 Urine output (mL): 0 (No Núñez to record) Pathology: other (Stomach) Condition: stable Disposition: PACU
--- NOTE | 2021-10-27 10:42 | P.DS_ITS ---
DS: Providers Provider Date of Service: 10/28/21 Date of admission: 10/27/21 06:31 Primary care physician: TRIPP Her DS: Summary Hospital Course Hospital Course: ADMITTING DIAGNOSIS: morbid obesity, asthma, radha ? DISCHARGE DIAGNOSIS: same, s/p laparoscopic sleeve gastrectomy ? PAST SURGICAL HISTORY: appendectomy ? PROCEDURE: upper endoscopy, laparoscopic sleeve gastrectomy ? DISCHARGE SUMMARY: ? History of Present Illness: ? The patient is a?41 year-old man with a BMI of?49.6 kg/m2 and associated co- morbidities as described above. The patient had extensive work-up,lost?31.6 lbs preoperatively and was electively scheduled for laparoscopic, possible open sleeve gastrectomy and gastropexy. Risks and complications of the surgery were discussed with the patient in advance, particularly the possibility of , pulmonary embolism, anastomotic leak, bleeding, bowel injury, GERD, cardiac, renal or pulmonary complications. The patient understood all the risks and was in agreement with the surgical plan. ? Hospital Course: ? The patient underwent an uneventful laparoscopic sleeve gastrectomy with gastropexy on the day of admission. Postoperatively, the patient was transferred to the surgical floor. The patient received IV Acetaminophen and IV dilaudid for pain control. Patient was started on bariatric phase 1 diet POD #0. On postoperative day one, the patient was feeling well without nausea, vomiting, fevers, or tachycardia. The patient had some mild incisional pain and the abdomen was soft. ? On the morning of postoperative day one, the patient was continued on 1 ounce of water or ice every half hour. During the day, the patient did fairly well, having some incisional pain, but able to ambulate adequately and to tolerate liquids well. ? Since the patient is doing well, we decided that the patient was ready to be discharged. The patient was given instructions to follow-up with me next week and to call my office for any fever over 101, persistent abdominal pain, nausea, vomiting, GERD, symptoms of DVT such as calf tenderness, or leg swelling, or pulmonary embolism such as chest pain or shortness of breath. The patient was also instructed to drink 40-60 ounces of liquids per day using the 1-ounce cups. The patient had been given prescriptions for Tylenol for pain, Zofran prn for nausea, and pantoprazole and carafate previously. The patient was encouraged to ambulate and use the incentive spirometer. The patient was allowed to shower, but no baths, and encouraged to stay active at home. All of these instructions were given to the patient personally. All questions were answered and the patient understood all instructions, the instructions were also given to the patient in print. Time Spent with Patient Time attestation: Total time spent providing and/or coordinating discharge services: Discharge coordination time: Less than 30 minutes Quality: Safe Use of Opioids Does Pt have an Active Cancer Diagnosis on the Problem List?: No Quality: Stroke Does the patient have a stroke diagnosis?: No Physical Exam Vital Signs: Vital Signs: Last Vital Signs Temp 97.3 F 10/27/21 06:59 Pulse 71 10/27/21 07:32 Resp 16 10/27/21 07:32 BP 138/78 10/27/21 06:59 Pulse Ox 95 10/27/21 06:59 O2 Del Method 10/27/21 06:59 BMI result Body Mass Index 44.3 DS: Data Data Completed and Pending Pending studies at discharge: Pending at discharge 10/27/21 09:37 Surgical [PTH] Routine Labs on day of discharge: Laboratory Results - last 24 hr 10/26/21 10/26/21 09:45 13:05 COVID-19 ([facility]IMAS) Negative COVID-19 Clin Com See Note Blood Type A Positive Antibody Screen NEGATIVE Discharge Plan Discharge Patient Disposition: Home, Self-Care Discharge Diagnosis: s/p laparoscopic sleeve gastrectomy Referrals: Celia Mireles FNP-C [Primary Care Provider] - 1 Week Discharge Medications: Continued albuterol sulfate 2.5 mg /3 mL (0.083 %) solution for nebulization 2.5 mg inhalation Q6-8H PRN (Reason: bronchospasm) Qty: 75 0RF albuterol sulfate 90 mcg/actuation HFA aerosol inhaler 2 inh inhalation Q6-8H PRN (Reason: shortness of breath or wheezing) Qty: 8.5 1RF pantoprazole 40 mg tablet,delayed release (DR/EC) 40 mg PO DAILY Qty: 30 3RF sucralfate 100 mg/mL suspension 10 ml PO BID Qty: 400 3RF ondansetron HCl 4 mg tablet 4 mg PO Q6H PRN (Reason: nausea and vomiting) Qty: 20 0RF Discontinued cholecalciferol (vitamin D3) 125 mcg (5,000 unit) capsule 125 mcg PO DAILY Qty: 30 3RF bacitracin 500 unit/gram ointment 1 appl topical BID Qty: 30 0RF Discharge Orders: Discharge Order (Routine); Ordered 10/28/21 Ordered By: Ten Pryro Activity on Discharge: No heavy lifting Stand Alone Forms: Patient Portal Discharge page Care Plan Goals: weight loss Health Concerns: morbid obesity Plan of Treatment: No tub baths, sex or returning to work until discussed at first post op appointment. No exercise, alcohol, tobacco or illegal drug use. Continue to use incentive spirometer hourly while awake. Walk in home for 5- 10 minutes every 2 hours during the first week. Follow all instructions in the bariatric handbook and call with any questions. Discharge Instructions 1. Please call your doctor or come back to the emergency room should any new symptoms arise. 2. You will receive a courtesy call from [facility] 24-48 hours after discharge. 3. Activity: abstain from alcohol, practice limited stair climbing, no bending, no driving, no exercise, no illicit substances, no lifting, no sex, no tub bath, no work. 4. Diet: continue as discussed with Dr. Pryor. 5. Dressing Change/Wound Care: Your incision is covered by clear bandages and guaze underneath. If the area is tender, you may apply an ice pack for short intervals (no more than 20 minutes on, followed by at least 20 minutes off). Do not apply heat. Do not use creams, lotions, or topical antibiotics unless instructed to do so by your surgeon. These can cause infection or allergic reaction. 6. Call your doctor if: - Your temperature exceeds 101.5 F - You experience excessive pain or swelling - You have an unexpected reaction to medication - You have excessive bleeding - You experience continued vomiting/nausea - Your incision begins to separate - Your incision shows signs of infection such as increased redness, swelling, excessive pain, heat, or drainage (light blood or clear fluid is normal) 7. General instructions: No lifting greater than 5 lbs for the next 4 weeks[address] driving within 24 hours of taking narcotic pain medications. If you do not move your bowels in the next 2 days, please take milk of magnesia over the counter. Please follow the post op diet and do not advance your diet until you are seen in the office in about 2 weeks. Please walk around your home every hour or two to prevent blood clots from forming in your legs. You do not need to wake from sleeping to walk. Please sleep in a bed or couch to prevent kinking at the hips and knees. Please take your incentive spirometer (your lung production sound mixer) home with you and use it for the next few days to prevent pneumonias. You may shower, no hot tubs, baths or swimming pools. Please call the office with any questions or concerns such as increasing abdominal pain, fever, chills, shortness of breath, chest pain, leg pain or swelling, or redness or drainage from your incisions. Please stay on stage 3 diet which includes sugar free clear liquids such as ice pops and jello and broth and crystal light. Avoid all carbonation. Please drink 3 protein shakes with at least 25-30 grams of protein daily or 3 of the Celebrate 4:1 shakes which can be purchased in our office. The Celebrate shakes have all of the bariatric vitamins you need if you consume these shakes. If you are drinking other protein shakes, you will need to purchase the Celebrate multivitamins and calcium that we provide in the office (they will provide all the vitamins you need). Please make sure you are consuming at least 40-60 ounces of water in addition to your 3 protein shakes daily. Do not hesitate to contact the office with any questions at . The patient's medical history has been reviewed and they are considered low risk for post op DVT and therefore DVT prophylaxis is not considered necessary. Travel after surgery was reviewed. The patient has not disclosed any travel plans during the first 30 days after surgery and they have been advised that within the first 30 days after surgery any bus, plane, train or car travel over 2 hours in duration is contraindicated due to the possibility of developing blood clots from immobility. Any travel, needs to include periods of ambulation of 10 minutes in duration every 2 hours.? The patient was instructed to discuss any plans for travel during this period with their bariatric surgeon. Assessment: stable s/p laparoscopic sleeve gastrectomy Discharge Date/Time: 10/28/21 09:16
--- NOTE | 2021-10-27 10:42 | PM.PNGS ---
Subjective Subjective Date of Service: 10/28/21 Interval history: Patient has mild incisional pain, but was able to ambulate and use the incentive spirometer. He is tolerating phase 1 bariatric diet Physical Exam Vital Signs: Vital Signs: Last Vital Signs Temp 97.3 F 10/27/21 06:59 Pulse 71 10/27/21 07:32 Resp 16 10/27/21 07:32 BP 138/78 10/27/21 06:59 Pulse Ox 95 10/27/21 06:59 O2 Del Method 10/27/21 06:59 BMI result Body Mass Index 44.3 GI: Inspection: Yes normal to inspection, Yes incision (dry, clean and intact) and Yes obesity Extrem: Right lower extremity: normal to inspection (no calf tenderness) Left lower extremity: normal to inspection (no calf tenderness) Objective Data Active Medications Albuterol Sulfate (Albuterol Sulfate (0.083%) 2.5 Mg/3 Ml Vial.Neb) 2.5 mg INHALE ONCE PRN PRN Reason: Shortness of Breath/Wheezing Last Admin: 10/27/21 07:30 Dose: 2.5 mg Documented By: FLORES Albuterol Sulfate (Albuterol Sulfate (0.083%) 2.5 Mg/3 Ml Vial.Neb) 2.5 mg INHALE ONCE PRN PRN Reason: Wheezing Albuterol Sulfate (Albuterol Sulfate (0.083%) 2.5 Mg/3 Ml Vial.Neb) 2.5 mg INHALE Q6-8H PRN PRN Reason: bronchospasm Albuterol Sulfate (Albuterol Sulfate 90 Mcg 8 Gm Inhaler) 2 puff INHALE Q6-8H PRN PRN Reason: shortness of breath or wheezing Fentanyl (Fentanyl Citrate/Pf 100 Mcg/2 Ml Vial) 25 mcg IVPUSH Q5M PRN; Protocol PRN Reason: Pain, Moderate (Pain Scale 4-6 Hydromorphone HCl (Hydromorphone Hcl 0.5 Mg/0.5 Ml Syringe) 0.25 mg IVPUSH Q5M PRN; Protocol PRN Reason: Pain, Severe (Pain Scale 7-10) Lactated Ringer's (Lr) 1,000 mls @ 50 mls/hr IVCONT .Q20H CHRIS Promethazine HCl 6.25 mg/ (Sodium Chloride) 50.25 mls @ 201 mls/hr IV ONCE PRN PRN Reason: Nausea and Vomiting Ondansetron HCl (Ondansetron Hcl 4 Mg/2 Ml Vial) 4 mg IVPUSH ONCE PRN PRN Reason: Nausea and Vomiting Labs CBC & Chem 7: 10/28/21 05:18 10/28/21 05:18 Labs: Laboratory Results - last 24 hr 10/26/21 10/26/21 09:45 13:05 COVID-19 ([facility]IMAS) Negative COVID-19 Clin Com See Note Blood Type A Positive Antibody Screen NEGATIVE Procedures Date of Service Date of Service: 10/28/21 Progress Note: A&P Assessment and plan (1) Morbid obesity: Status: Acute Assessment and Plan: s/p laparoscopic sleeve gastrectomy and gastropexy Doing well Check am labs. If OK, will discharge home? (2) Severe sleep apnea: Status: Acute (3) Intermittent asthma: Status: Acute (4) Liver fibrosis: Status: Acute (5) Hepatomegaly: Status: Acute (6) Status post sleeve gastrectomy: Status: Acute Time Spent With Patient Time: Total time spent is greater than 50% in coordination of care (as documented) at patient's floor/unit and/or counseling patient: Quality Stroke Does the patient have a stroke diagnosis?: No VTE Prior VTE?: No VTE Risk Level:: Surgical - moderate VTE Device Contraindication: N/A - Device Ordered VTE Drug Contraindication: Treatment Not Indicated
[2021-10-27] MEDS: Metoclopramide HCl 10 MG/2 ML VIAL IVPUSH (11:06)
[2021-10-27] MEDS: Famotidine/PF 20 MG/2 ML VIAL IVPUSH ×2 (11:08→19:47)
[2021-10-27] MEDS: ondansetron HCL 4 MG/2 ML VIAL IVPUSH ×2 (11:44→19:47)
[2021-10-27 11:46] LABS: Hematocrit 49.6 % (42.0-52.0)
[2021-10-27 11:58] LABS: Anion Gap 15 (12-20); Blood Urea Nitrogen 12 mg/dL (9-16); Calcium 8.5 mg/dL (8.4-10.2); Carbon Dioxide 21 mmol/L (22-29); Chloride 104 mmol/L (96-108); Creatinine Clr Calc Pharmacy 177.8; Estimated Glomerular Filt Rate > 60; Glucose Random 151 mg/dL (60-115); Potassium 4.2 mmol/L (3.3-5.1); Sodium 136 mmol/L (135-145)
[2021-10-27] MEDS: Lactated Ringers 1,000 ML 125 ML IVCONT ×2 (12:57→19:50)
[2021-10-27] MEDS: ceFAZolin Sodium/Dextrose,Iso 2 GM/50 ML PIGGYBACK IV (13:50)
[2021-10-27] MEDS: 0.9 % Sodium Chloride Flush 3 ML SYRINGE IVFLUSH (19:47)
[2021-10-28] MEDS: Metoclopramide HCl 10 MG/2 ML VIAL IVPUSH (00:05)
[2021-10-28] MEDS: Lactated Ringers 1,000 ML 125 ML IVCONT (03:26)
[2021-10-28 03:48] VITALS: BP 153/77; PULSE 70; RESP 18; TEMP 36.6; O2SAT 96
[2021-10-28] MEDS: ondansetron HCL 4 MG/2 ML VIAL IVPUSH (04:48)
[2021-10-28 05:57] LABS: Basophils Percent Auto 0.1 % (0-2); Hematocrit 46.3 % (42.0-52.0); Hemoglobin 15.9 g/dl (14.0-18.0); Imm Gran Abs Auto 0.05 X10*3/uL (0.00-0.03); Imm Gran Pct Auto 0.4 % (0.0-0.4); Lymphocytes Absolute Auto 1.4 X10*3/uL (1.2-4.9); Lymphocytes Percent Auto 11.6 % (20-40); MANUAL DIFF FLAG NO; Mean Corpuscular HGB Conc 34.3 g/dl (31.0-36.0); Mean Corpuscular Hemoglobin 30.3 pg (27.0-33.0); Mean Corpuscular Volume 88.4 fL (80.0-98.0); Mean Platelet Volume 9.7 fL (9.4-12.4); Monocytes Absolute Auto 1.4 X10*3/uL (0.1-1.2); Monocytes Percent Auto 11.3 % (2-11); Neutrophils Absolute Auto 9.3 x10*3/uL (2.0-8.3); Neutrophils Percent Auto 76.6 % (45-73); Platelet Count 267 X10*3/uL (160-400); Red Blood Count 5.24 X10*6/uL (4.60-5.80); Red Cell Distribution Width 12.9 % (11.0-16.0); White Blood Count 12.1 X10*3/uL (4.8-10.8)
[2021-10-28 06:11] LABS: Anion Gap 16 (12-20); Blood Urea Nitrogen 8 mg/dL (9-16); Calcium 8.8 mg/dL (8.4-10.2); Carbon Dioxide 25 mmol/L (22-29); Chloride 103 mmol/L (96-108); Creatinine Clr Calc Pharmacy 203.9; Estimated Glomerular Filt Rate > 60; Glucose Random 97 mg/dL (60-115); Potassium 4.5 mmol/L (3.3-5.1); Sodium 139 mmol/L (135-145)
[2021-10-28 06:50] VITALS: BP 145/85; PULSE 104; RESP 18; TEMP 36; O2SAT 96
[2021-10-28] MEDS: Famotidine/PF 20 MG/2 ML VIAL IVPUSH (07:25)
--- NOTE | 2021-10-28 09:24 | MHC.CM.PN ---
PATIENT LIVES WITH FAMILY, IS INDEPENDENT AT HOME AND COMMUNITY, IS EMPLOYED, DENIES USE OF DME OR RECEIVING HOME SERVICES, PCP MEREDITH GALVAN'Bob, HCP-EDUCATED DECLINED TO COMPLETE AT THIS TIME, FAMILY WILL TRANSPORT. D/C PLAN: HOME SELF-CARE
--- NOTE | 2021-10-28 09:27 | MHC.CM.PN ---
PATIENT HAS BEEN MEDICALLY CLEARED FOR DISCHARGE TODAY; DISCHARGE DISPOSITION IS HOME SELF-CARE. FAMILY WILL TRANSPORT.
--- NOTE | 2021-10-28 10:31 | HO.POSTANES ---
Post Anesthesia Evaluation Post Anesthesia Evaluation Vital Signs: Vital Signs Temp Pulse Resp BP Pulse Ox O2 Del Method 10/28/21 06:50 96.8 F 104 H 18 145/85 H 96 Room Air 10/28/21 03:48 97.9 F 70 18 153/77 H 96 Room Air 10/27/21 23:46 98.1 F 92 18 144/79 H 94 Room Air Anesthesia: General Endotracheal-GETA Mental Status: Awake Pain Control: Satisfactory (mild incisional pain) Nausea/Vomiting: None Hydration: Adequate Anesthesia-Related Issues: No Anes. Related Issues
== END 2021-10-28 09:16 | disposition home or self-care (01) | DRG 403 ==
LOC: HO.SSSA 10:44 → HO.S3 11:39
PROVIDERS: Physician Assistant Surgical; Admitting Provider Surgery; PCP Nurse Practitioner Family; Visit Provider Surgery
PROC: 0DB64Z3 Excision of Stomach, Percutaneous Endoscopic Approach, Vertical (ICD-10-PCS; CPT 43845; principal; 2021-10-27 07:30)
DX: E66.01 Morbid (severe) obesity due to excess calories (principal); K74.00 Hepatic fibrosis, unspecified; D13.5 Benign neoplasm of extrahepatic bile ducts; J45.909 Unspecified asthma, uncomplicated; F17.210 Nicotine dependence, cigarettes, uncomplicated; F32.A Depression, unspecified; F41.9 Anxiety disorder, unspecified; G47.33 Obstructive sleep apnea (adult) (pediatric); Z20.822 Contact with and (suspected) exposure to COVID-19; Z71.6 Tobacco abuse counseling; Z79.899 Other long term (current) drug therapy
CPT/HCPCS: 36415; 80048; 85014; 85018; 85025; 86850; 86900; 86901; 87635; 88307; 88342; 94640; A4649; C9088; J0131; J0690; J1100; J1170; J2250; J2370; J2405; J2550; J2765; J2795; J3010

== ENCOUNTER → 2022-06-18 08:15 | Outpatient (BNVA) | payer OTHER, SELFPAY | PROVIDERS: PCP Nurse Practitioner Family; Visit Provider Physician Assistant Surgical | DX: Z90.3 Acquired absence of stomach [part of] (principal) | CPT/HCPCS: 99212 ==

== ENCOUNTER 2022-08-02 21:24 | Emergency (ER) | payer OTHER, SELFPAY ==
[2022-08-02 21:37] VITALS: BP 106/63; PULSE 74; RESP 18; TEMP 36.8; O2SAT 99; BMI 22.7
--- NOTE | 2022-08-02 21:53 | PC.NURSE ---
pt ambulatory to exam room, changed into hospital attire, pt has bilateral erythematous cysts present on both axilla. Pt sts that he has had cysts in the past, but not in his axilla. pt s/p gastric sleeve hx of ADELE. Pt denies fever, chills, N/V/D at this time, warm blanket given call pineda within reach- awaiting provider dilcia
[2022-08-02] MEDS: Amoxicillin/Potassium Clav 875 MG TABLET PO (22:23)
--- NOTE | 2022-08-02 22:25 | ED_ITS ---
HPI - General Adult General Chief complaint: General Medical Stated complaint: nurys. cysts in armpits Time Seen by Provider: 08/02/22 22:07 Source: patient Mode of arrival: ambulatory Limitations: no limitations History of Present Illness HPI narrative: Patient with swelling in bilateral axillary area with history of same in the past no pus discharge no fever or redness Related Data Home Medications Medication Instructions Recorded Confirmed one a day MVI PO DAILY 06/18/22 06/18/22 Previous Rx's Medication Instructions Recorded albuterol sulfate 90 mcg/actuation 2 inh inhalation Q6-8H PRN 04/08/21 aerosol inhaler shortness of breath or wheezing #8.5 grams albuterol sulfate 2.5 mg/3 mL 2.5 mg (3 mL) inhalation Q6-8H PRN 08/14/21 (0.083 %) solution for nebulization bronchospasm #75 mL amoxicillin 875 mg-potassium 1 tab PO BID #20 tabs 08/02/22 clavulanate 125 mg tablet Allergies Allergy/AdvReac Type Severity Reaction Status Date / Time doxycycline [DOXYCYCLINE] Allergy Intermediate LIP Verified 06/18/22 08:20 [place] Review of Systems Review of Systems: Yes all other systems are reviewed and are negative PMFSH Past Medical History Medical History Anxiety Asthma Depression Hx of heartburn Obesity ADELE (obstructive sleep apnea) Surgical History History of appendectomy Status post sleeve gastrectomy Family History Family History Mother Mental health disorder Substance use disorder Father Mental health disorder Substance use disorder Maternal Grandfather Hypertension Diabetes Hyperlipidemia Paternal Grandfather Myocardial infarct Diabetes Hyperlipidemia Hypertension Paternal Uncle Colon cancer, Onset Age: 50 Maternal Uncle Cancer, Onset Age: 70 Maternal Aunt Substance use disorder Social History Social History Housing: House Are you a primary hospice care sales consultant to a significant other at home: No Do you presently have visiting nurse or other home services: No Alcohol intake: former Patient Tobacco Use Status: Current everyday Tobacco user Tobacco use type: Cigarette Cigarettes Per Day: 5 e-Cigarette/Vaping Use: Never Used Second Hand Smoke Exposure: No Advance Directives: No Advance Directives Information Provided: No service: No Current occupational status: employed Cognitive needs: No Hearing needs: No Vision needs: No Physical Exam ED Vital Signs: Vital Signs - 24 hr 08/02/22 21:37 Temperature 98.2 F Pulse Rate 74 Respiratory Rate 18 Blood Pressure 106/63 Pulse Oximetry 99 Oxygen Delivery Method Room Air BMI result Body Mass Index 22.7 Appearance: Alert. Oriented X3. No acute distress. Skin: Skin warm and dry. Bilateral small nodular swelling and axillary area no pus discharge or erythema or significant tenderness Neuro: Oriented X 3. Medications Administered Discontinued Medications Generic Name Dose Route Start Last Admin Trade Name Freq PRN Reason Stop Dose Admin Amoxicillin/Clavulanate Potassium 875 mg 08/02/22 22:14 08/02/22 22:23 Amoxicillin/Potassium Clav 875 Mg Tablet PO 08/02/22 22:15 875 mg ONCE ONE Administration Medical Decision Making Medical Decision Making MDM Narrative: Patient with hydradenitis suppurative in bilateral axillary area allergic to doxycycline discharge patient home on Augmentin Discharge Plan Discharge Clinical Impression: Hidradenitis axillaris Patient Disposition: Home, Self-Care Instructions: Hidradenitis Suppurativa (ED) Additional Instructions: Take antibiotic as prescribed Report to the ER/PCP if increase in swelling size Prescriptions: New amoxicillin-pot clavulanate 875-125 mg tablet 1 tab PO BID Qty: 20 0RF No Action albuterol sulfate 2.5 mg /3 mL (0.083 %) solution for nebulization 2.5 mg inhalation Q6-8H PRN (Reason: bronchospasm) Qty: 75 0RF albuterol sulfate 90 mcg/actuation HFA aerosol inhaler 2 inh inhalation Q6-8H PRN (Reason: shortness of breath or wheezing) Qty: 8.5 1RF one a day MVI PO DAILY
--- NOTE | 2022-08-02 22:27 | PC.NURSE ---
pt medicated per MAR.
== END 2022-08-02 22:29 | disposition home or self-care (01) ==
PROVIDERS: Emergency Provider Internal Medicine
DX: L73.2 Hidradenitis suppurativa (principal)
CPT/HCPCS: 99282; 99283

== ENCOUNTER 2022-08-25 12:55 | Emergency (ER) | payer OTHER, SELFPAY ==
[2022-08-25 13:41] VITALS: BP 107/60; PULSE 83; RESP 19; TEMP 36.7; O2SAT 98; BMI 22.2
--- NOTE | 2022-08-25 13:42 | ED_ITS ---
HPI - Skin/Abscess/Foreign Bdy General Chief complaint: Wound/Laceration Stated complaint: Cyst R Leg Source: patient, RN notes reviewed and old records reviewed Mode of arrival: ambulatory History of Present Illness HPI narrative: 41-year-old male with a past medical history anxiety, asthma, depression, ADELE presenting to the ED complaining painful cyst/abscess to right hip x 4 days. Admits was draining a few days ago, not draining at present. Denies known tick or insect bites. Denies fever/chills, injury, hip pain, decreased ROM Related Data Home Medications Medication Instructions Recorded Confirmed one a day MVI PO DAILY 06/18/22 06/18/22 Previous Rx's Medication Instructions Recorded albuterol sulfate 90 mcg/actuation 2 inh inhalation Q6-8H PRN 04/08/21 aerosol inhaler shortness of breath or wheezing #8.5 grams albuterol sulfate 2.5 mg/3 mL 2.5 mg (3 mL) inhalation Q6-8H PRN 08/14/21 (0.083 %) solution for nebulization bronchospasm #75 mL amoxicillin 875 mg-potassium 1 tab PO BID #20 tabs 08/02/22 clavulanate 125 mg tablet cephalexin 500 mg capsule 500 mg PO QID 7 days #28 caps 08/25/22 sulfamethoxazole 800 1 tab PO Q12H 7 days #14 tabs 08/25/22 mg-trimethoprim 160 mg tablet (Bactrim DS) Allergies Allergy/AdvReac Type Severity Reaction Status Date / Time doxycycline [DOXYCYCLINE] Allergy Intermediate LIP Verified 08/25/22 13:40 [place] Review of Systems Review of Systems: Constitutional: No Fever, No Chills ENT/Mouth: No Ear Pain, No Nasal Congestion, No Sinus Pain, No Hoarseness, No sore throat, No Rhinorrhea, No Swallowing Difficulty Cardiovascular: No Chest Pain, No SOB Respiratory: No Cough, No Sputum, No Wheezing Gastrointestinal: No Nausea, No Abdominal pain Genitourinary: No Dysuria, No Urinary Frequency, No Flank Pain Musculoskeletal: No joint pain, No Myalgias, No Joint Swelling Skin: +Skin Lesions, No rash Neuro: No Weakness, No Numbness, No Paresthesias Yes all other systems are reviewed and are negative Constitutional: Constitutional: Reports as per [facility] Past Medical History Attestation statement: The following information was validated with the patient. Source: old records reviewed Medical History Anxiety Asthma Depression Hx of heartburn Obesity ADELE (obstructive sleep apnea) Surgical History History of appendectomy Status post sleeve gastrectomy Family History Family History Mother Mental health disorder Substance use disorder Father Mental health disorder Substance use disorder Maternal Grandfather Hypertension Diabetes Hyperlipidemia Paternal Grandfather Myocardial infarct Diabetes Hyperlipidemia Hypertension Paternal Uncle Colon cancer, Onset Age: 50 Maternal Uncle Cancer, Onset Age: 70 Maternal Aunt Substance use disorder Social History Social History Housing: House Are you a primary neurocritical care physician to a significant other at home: No Do you presently have visiting nurse or other home services: No Alcohol intake: former Patient Tobacco Use Status: Current everyday Tobacco user Tobacco use type: Cigarette Cigarettes Per Day: 5 e-Cigarette/Vaping Use: Never Used Second Hand Smoke Exposure: No service: No Current occupational status: employed Cognitive needs: No Hearing needs: No Vision needs: No Physical Exam Vital Signs: Vital Signs: Last Vital Signs Temp 98.1 F 08/25/22 13:41 Pulse 83 08/25/22 13:41 Resp 19 08/25/22 13:41 BP 107/60 08/25/22 13:41 Pulse Ox 98 08/25/22 13:41 O2 Del Method Room Air 08/25/22 13:41 BMI result Body Mass Index 22.2 Const: General: cooperative, healthy appearing and no acute distress Orientation/consciousness: patient oriented x3 Limitations: no limitations HEENT: Head: Yes normal to inspection and Yes atraumatic Ears: hearing grossly normal bilaterally General nose exam: Normal external nose present Face and sinus: Yes normal facial exam Eyes: General: appearance normal, both eyes and all related structures EOM: EOMs intact bilaterally Neck: Neck: Yes normal visual inspection and Yes no meningeal signs Resp: Effort & Inspection: normal respiratory effort and no respiratory dis tress Cardio: Rate: regular rate Peripheral pulses: Peripheral pulses 2+ throughout Skin: Other: + erythematous indurated abscess to right upper thigh with warmth and tenderness. Small central darkening. No fluctuance or pointing. No drainage. No crepitus. Not circumferential Right hip ROM intact without pain. NV intact distally Rashes: no rashes Wounds: no wounds Neuro: General: patient oriented x3, tone normal and no meningeal signs Gait exam (Neuro): Normal gait present Extrem: General: Yes normal to inspection Medical Decision Making Medical Decision Making MDM Narrative: 41-year-old male with a past medical history anxiety, asthma, depression, ADELE presenting to the ED complaining painful cyst/abscess to right hip x 4 days. On exam vital signs stable, NAD, nontoxic appearing, physical exam as noted above with indurated cellulitic abscess to right upper thigh. No fluctuance/pointing. No drainage. Low suspicion for joint involvement/bursitis. Area wound not beneficial from I&D at this time. Concern for possible insect bite. Evidence of necrosis Plan: P.o. antibiotics, close follow-up Please refer to course for remaining clinical decision making, interpretation of labs/imaging results, and discussions with consultants and/or family members. Differential Diagnosis Differential Diagnoses: The differential diagnosis associated with the presentation includes As above Admission/Observation Consideration of admission/observation: Escalation of care including admission/observation considered Lab Data MDM Lab Attestation statement: I reviewed the patient's lab results. Radiology Impression Discussion of test interpretation with radiology: I have reviewed the radiologist's reading. External Record Review External record reviewed: Inpatient record, Office record, Outpatient record, Prior outpatient labs, Prior outpatient radiology, Primary care record and Outside ED record Tests considered The following testing was considered but not selected: As above Discharge Plan Discharge Clinical Impression: Abscess, Cellulitis Patient Disposition: Home, Self-Care Instructions: Abscess (ED) Additional Instructions: Keflex & Bactrim are antibiotics based take as prescribed. Apply warm compresses If redness or swelling is spreading beyond lines created return to the ED Follow-up with her doctor If area is pointing, becomes soft or is open/draining return to the ED Prescriptions: New sulfamethoxazole-trimethoprim [Bactrim DS] 800-160 mg tablet 1 tab PO Q12H 7 Days Qty: 14 0RF cephalexin 500 mg capsule 500 mg PO QID 7 Days Qty: 28 0RF No Action albuterol sulfate 2.5 mg /3 mL (0.083 %) solution for nebulization 2.5 mg inhalation Q6-8H PRN (Reason: bronchospasm) Qty: 75 0RF amoxicillin-pot clavulanate 875-125 mg tablet 1 tab PO BID Qty: 20 0RF albuterol sulfate 90 mcg/actuation HFA aerosol inhaler 2 inh inhalation Q6-8H PRN (Reason: shortness of breath or wheezing) Qty: 8.5 1RF one a day MVI PO DAILY Referrals: Physician,None [Primary Care Provider] - 3 days
== END 2022-08-25 14:39 | disposition home or self-care (01) ==
PROVIDERS: Emergency Provider Emergency Medicine
DX: L02.415 Cutaneous abscess of right lower limb (principal); L03.115 Cellulitis of right lower limb; F17.210 Nicotine dependence, cigarettes, uncomplicated
CPT/HCPCS: 99282; 99283

== ENCOUNTER 2022-09-05 16:40 | Emergency (ER) | payer OTHER, SELFPAY ==
[2022-09-05 16:54] VITALS: BP 123/78; BP 140/76; PULSE 68; PULSE 92; RESP 17; O2SAT 100; O2SAT 99; BMI 22.4
--- NOTE | 2022-09-05 19:03 | PC.NURSE ---
pt seen walking out of the ed. pt had a ekg, steady gait. no s/s of distress.
== END 2022-09-05 19:02 | disposition left against medical advice (07) ==
PROVIDERS: Emergency Provider Emergency Medicine
DX: R42 Dizziness and giddiness (principal)
CPT/HCPCS: 93005; 99283; 99284

== ENCOUNTER 2022-11-05 19:58 | Emergency (ER) | payer OTHER, SELFPAY ==
[2022-11-05 20:15] VITALS: BP 111/66; PULSE 88; RESP 18; TEMP 36.8; O2SAT 98; BMI 20.8
--- NOTE | 2022-11-05 21:48 | PC.NURSE ---
pt in bed no distress waiting for the provider
[2022-11-05 22:17] VITALS: BP 115/59; PULSE 75; O2SAT 99
--- NOTE | 2022-11-05 23:01 | ED_ITS ---
HPI - Skin/Abscess/Foreign Bdy General Chief complaint: Skin/Abscess/Foreign Body Stated complaint: Abscess on back of head Time Seen by Provider: 11/05/22 22:48 Source: patient Mode of arrival: ambulatory Limitations: no limitations History of Present Illness HPI narrative: 42-year-old male presents with abscess the neck. Symptoms started a while ago but started getting bigger and more painful approximately 2 days ago. Now draining purulent material but denies any fevers or chills. Pain is worse with palpation. Pain does not radiate. Denies any nausea vomiting. No numbness or tingling or focal deficits. Related Data Home Medications Medication Instructions Recorded Confirmed one a day MVI PO DAILY 06/18/22 06/18/22 Previous Rx's Medication Instructions Recorded albuterol sulfate 90 mcg/actuation 2 inh inhalation Q6-8H PRN 04/08/21 aerosol inhaler shortness of breath or wheezing #8.5 grams albuterol sulfate 2.5 mg/3 mL 2.5 mg (3 mL) inhalation Q6-8H PRN 08/14/21 (0.083 %) solution for nebulization bronchospasm #75 mL amoxicillin 875 mg-potassium 1 tab PO BID #20 tabs 08/02/22 clavulanate 125 mg tablet cephalexin 500 mg capsule 500 mg PO QID 7 days #28 caps 08/25/22 sulfamethoxazole 800 1 tab PO Q12H 7 days #14 tabs 08/25/22 mg-trimethoprim 160 mg tablet (Bactrim DS) sulfamethoxazole 800 1 tab PO BID #10 tabs 11/05/22 mg-trimethoprim 160 mg tablet (Bactrim DS) Allergies Allergy/AdvReac Type Severity Reaction Status Date / Time doxycycline [DOXYCYCLINE] Allergy Intermediate LIP Verified 11/05/22 20:14 [place] Review of Systems Review of Systems: CONSTITUTIONAL: Denies weight loss, fever and chills. HEENT: Denies changes in vision and hearing. RESPIRATORY: Denies SOB and cough. CV: Denies palpitations no CP. GI: Denies abdominal pain, nausea, vomiting and diarrhea. : Denies dysuria and urinary frequency. MSK: Denies myalgia and joint pain. SKIN: Denies rash and pruritus. NEUROLOGICAL: Denies headache and syncope. PSYCHIATRIC: Denies recent changes in mood. Denies anxiety and depression. All other ROS are negative unless in HPI [facility] Past Medical History Medical History Anxiety Asthma Depression Hx of heartburn Obesity ADELE (obstructive sleep apnea) Surgical History History of appendectomy Status post sleeve gastrectomy Family History Family History Mother Mental health disorder Substance use disorder Father Mental health disorder Substance use disorder Maternal Grandfather Hypertension Diabetes Hyperlipidemia Paternal Grandfather Myocardial infarct Diabetes Hyperlipidemia Hypertension Paternal Uncle Colon cancer, Onset Age: 50 Maternal Uncle Cancer, Onset Age: 70 Maternal Aunt Substance use disorder Social History Social History Housing: House Are you a primary hourly caregiver to a significant other at home: No Do you presently have visiting nurse or other home services: No Alcohol intake: former Patient Tobacco Use Status: Current everyday Tobacco user Tobacco use type: Cigarette Cigarettes Per Day: 5 e-Cigarette/Vaping Use: Never Used Second Hand Smoke Exposure: No Substance Use Type: Marijuana Advance Directives: No Advance Directives Information Provided: Yes service: No Current occupational status: employed Cognitive needs: No Hearing needs: No Vision needs: No Physical Exam 2 Vital Signs: Vital Signs: Last Vital Signs Temp 98.3 F 11/05/22 20:15 Pulse 75 11/05/22 22:17 Resp 18 11/05/22 20:15 BP 115/59 L 11/05/22 22:17 Pulse Ox 99 11/05/22 22:17 O2 Del Method Room Air 11/05/22 22:17 BMI result Body Mass Index 20.8 GEN: Well developed, no acute distress, alert, oriented HEENT: Normocephalic, atraumatic, normal external ears, nose appears normal Eyes: Normal to appearance Neck: Supple, no lymphadenopathy Respiratory: Talks in complete sentences, no respiratory distress Extremities: No clubbing cyanosis or edema Neurologic: No focal neurologic deficits, cranial nerves 2-12 intact, gait normal Skin: No rash 3.5 cm abscess/cyst Course Course Course Narrative: Patient is now status post I& D. He will be discharged on antibiotics follow up in 2 days. Medical Decision Making Medical Decision Making [facility] Narrative: Patient presents with an abscess or infected cyst on the neck. Ninety will be performed. Patient will be on oral antibiotics. Discharge instructions have been discussed. Differential Diagnosis Differential Diagnoses: The differential diagnosis associated with the presentation includes (Cyst, abscess) Prescription Management I considered prescription management with: Pain Medication and Antibiotic Procedures Abscess I/D Site: neck Local Anesthetic: lidocaine 1% Amount of anesthesia used (mL): 3 Technique: incised with blade Amount of fluid expressed (mL): 2 Sent for culture/gram staining?: No Irrigation: Yes Packing used?: plain Discharge Plan Discharge Clinical Impression: Abscess of skin or subcutaneous tissue Patient Disposition: Home, Self-Care Instructions: Abscess (ED), Abscess Incision and Drainage (DC) Prescriptions: New sulfamethoxazole-trimethoprim [Bactrim DS] 800-160 mg tablet 1 tab PO BID Qty: 10 0RF No Action albuterol sulfate 2.5 mg /3 mL (0.083 %) solution for nebulization 2.5 mg inhalation Q6-8H PRN (Reason: bronchospasm) Qty: 75 0RF amoxicillin-pot clavulanate 875-125 mg tablet 1 tab PO BID Qty: 20 0RF sulfamethoxazole-trimethoprim [Bactrim DS] 800-160 mg tablet 1 tab PO Q12H 7 Days Qty: 14 0RF cephalexin 500 mg capsule 500 mg PO QID 7 Days Qty: 28 0RF albuterol sulfate 90 mcg/actuation HFA aerosol inhaler 2 inh inhalation Q6-8H PRN (Reason: shortness of breath or wheezing) Qty: 8.5 1RF one a day MVI PO DAILY Referrals: Physician,None [Primary Care Provider] - ([facility] in 2 days for wound check)
[2022-11-05] MEDS: Lidocaine HCl 1%/Epi 1:100,000 10 ML VIAL INFILTRATI (23:39)
[2022-11-05] MEDS: Sulfamethox/Trimeth 800/160 TABLET 1 TAB PO (23:39)
== END 2022-11-05 23:45 | disposition home or self-care (01) ==
PROVIDERS: Emergency Provider Emergency Medicine
DX: L02.811 Cutaneous abscess of head [any part, except face] (principal); Z79.899 Other long term (current) drug therapy
CPT/HCPCS: 10060; 99283; 99284

== ENCOUNTER 2022-11-25 09:58 | Outpatient (AMB) | payer OTHER, SELFPAY ==
[2022-11-25 10:00] VITALS: BP 108/64; PULSE 83; O2SAT 97; BMI 20.8
--- NOTE | 2022-11-25 10:00 | A.OFFPC_ITS ---
<Statement entered by Geno Mills RN - 11/25/22 11:00> pt was seen today by BS MENTAL HYGIENE CONSULTANT. BS asked me to get baby aspirin (81mg) and nitroglycerin (0.4mg) as well as an oxygent tank with supplies for pt. nitroglycein 0.4mg administered under pt 's tongue. also administered 81mg of aspirin. applied oxygen via NC at 2L per BS request. pt to go to the ED via ambulance. Vital Signs 11/25/22 10:00 Height 5 ft 10 in Weight 145 lb BMI 20.8 BP 108/64 Blood Pressure Location Lt brachial Position Sitting Pulse 83 Pulse Source Pulse Oximeter Temp Source Skin Pulse Oximetry (%) 97 Oxygen Delivery Method Room Air Intake Visit Reasons: F/U, See Bulletin Board [facility] Meat Lugger Required: No Allergies doxycycline [DOXYCYCLINE] Allergy (Intermediate, Verified 11/25/22 10:18) LIP TINGLING Medication List - Last Reconciled 11/25/22 by WHIT Morales albuterol sulfate 2.5 mg (3 mL) inhalation Q6-8H PRN albuterol sulfate 90 mcg/actuation 2 inhalations inhalation Q6-8H PRN [one a day MVI PO DAILY] Tobacco use date assessed: 11/25/22 Dental Screening Dental Screen Date: 11/25/22 Did you have a dental visit in the last 12 months?: Yes Did you have a dental problem in the last 6 months where you did not have access to dental care?: No Was dental information given to patient?: Patient has dentist HPI F/U, See Bulletin Board [facility] HPI Details Patient is a 42-year-old male who presents today for an office visit to follow-up on his chronic conditions. Patient was seen by DL in the past. Medical history significant for depression, history of ADELE - not on CPAP anymore due to weight loss, intermittent asthma, liver fibrosis, hepatomegaly, status post sleeve gastrectomy. Patient reports that for the past 3 weeks he has increased stress at home, reports starting with chest heaviness and left arm tingling for the past 3 weeks, these symptoms are intermittent and random. Last episode this morning, reports the same symptoms in the office today. Reports that he needs refills on his albuterol in inhaler, reports that asthma is not well controlled. Patient has therapist for his mental health, not interested in antidepressant medication. Patient denies difficulty breathing, although reports heavy chest, no chest pain. [facility] Medical History (Updated 11/25/22 @ 17:11 by WHIT Morales) Severe sleep apnea Morbid obesity Difficulty sleeping Sleep apnea BMI 50.0-59.9, adult Encounter to establish care ADELE (obstructive sleep apnea) Hx of heartburn Anxiety Depression Asthma Obesity Surgical History Status post sleeve gastrectomy History of appendectomy Family History Mother Mental health disorder Substance use disorder Father Mental health disorder Substance use disorder Maternal Grandfather Hypertension Diabetes Hyperlipidemia Paternal Grandfather Myocardial infarct Diabetes Hyperlipidemia Hypertension Paternal Uncle Colon cancer, Onset Age: 50 Maternal Uncle Cancer, Onset Age: 70 Maternal Aunt Substance use disorder Social History Housing: House Are you a primary care consultant to a significant other at home: No Do you presently have visiting nurse or other home services: No Alcohol intake: former Patient Tobacco Use Status: Current everyday Tobacco user Tobacco use type: Cigarette Cigarettes Per Day: 5 Smoked in Last 30 Days: Yes e-Cigarette/Vaping Use: Never Used Second Hand Smoke Exposure: No Use of substances other than those prescribed or required for medical reasons: No Substance Use Type: Marijuana Advance Directives: No service: No Current occupational status: employed Cognitive needs: No Hearing needs: No Vision needs: No Questionnaire PHQ-9 Over the last 2 weeks, how often have you been bothered by any of the following problems? 1. Little interest or pleasure in doing things: not at all 2. Feeling down, depressed, or hopeless: not at all 3. Trouble falling or staying asleep, or sleeping too much: not at all 4. Feeling tired or having little energy: not at all 5. Poor appetite or overeating: not at all 6. Feeling bad about yourself - or that you are a failure or have let yourself or your family down: not at all 7. Trouble concentrating on things, such as reading the newspaper or watching television: not at all 8. Moving or speaking so slowly that other people could have noticed. Or the opposite - being so fidgety or restless that you have been moving around a lot more than usual: not at all 9. Thoughts that you would be better off or of hurting yourself in some way: not at all Total score: 0 Depression Screening Interpretation: Negative [id number] - PHQ-9 Billing: Yes Source: Developed by Drs. Sylvester Lowe, Laksehia Ahmadi, Shravan Ace and colleagues, with an educational mohan from [employer]. Thrive Questionnaire Date Thrive assessed: 04/08/21 AUDIT C Alcohol Use Questionnaire (AUDIT-C) 1. How often do you have a drink containing alcohol?: Never Total Score: 0 Score Reviewed/Action Taken: No EVELYNE-7 AMB Questionnaire EVELYNE-7 Date EVELYNE - 7 assessed: 11/25/22 Feeling nervous, anxious, or on edge: 1 = Several days Not being able to stop or control worryin = Several days Worrying too much about different things: 1 = Several days Trouble relaxin = Not at all Being so restless that it is hard to sit still: 0 = Not at all Becoming easily annoyed or irritable: 0 = Not at all Feeling afraid as if something awful might happen: 0 = Not at all Total EVELYNE-7 score (0-4 normal; 5-9 mild; 10-14 moderate; 15-21 severe): 3 Source: Developed by Drs. Sylvester Lowe, Lakeshia Ahmadi, Shravan Ace and colleagues, with an educational mohan from [employer]. EVELYNE-7 Assessment Billing EVELYNE-7 Assessment Tool: EVELYNE-7 Assessment 26028 Review of Systems Const Denies body aches, Denies chills, Denies fever(s) and Denies headache(s) ENT Denies dizziness, Denies otalgia, Denies headache(s), Denies nasal discharge, Denies sinus pain and Denies sore throat Card Details: Heavy chest Denies chest pain, Denies edema, Denies lightheadedness and Denies dyspnea Resp Denies cough, Denies dyspnea and Denies wheezing GI Denies constipation, Denies diarrhea, Denies nausea and Denies vomiting Denies dysuria Musc Denies myalgias, Denies numbness and Reports tingling (Left arm) Skin/Breast Denies rash Neuro Denies dizziness, Denies headache(s), Denies numbness and Reports tingling (Left arm) Aller/Immun Denies wheezing Physical exam (Primary Care) Vital Signs: Last Vital Signs Pulse 83 11/25/22 10:00 BP 108/64 11/25/22 10:00 Pulse Ox 97 11/25/22 10:00 Oxygen Delivery Method Room Air 11/25/22 10:00 BMI result Body Mass Index 20.8 Tobacco/Smoking Status: Tobacco use Status Tobacco use date assessed 11/25/22 11/25/22 10:01 Patient Tobacco Use Status Current everyday Tobacco 11/25/22 10:01 Tobacco use type Cigarette 11/25/22 10:01 e-Cigarette/Vaping Use Never Used 11/25/22 10:01 PHQ-9: PHQ-9 Score PHQ-9: Total score 0 11/25/22 10:56 Depression Screening Interpretation: Negative Thrive Assessment: Date of Thrive Assessment Date Thrive assessed 04/08/21 11/25/22 10:01 Const General: cooperative and no acute distress Orientation/consciousness: patient oriented x3 HENMT Head: Yes normocephalic and Yes atraumatic Ears: TM's normal bilaterally Face and sinus: Yes sinuses nontender Mouth: oropharynx normal and moist mucous membranes Throat: Yes posterior oropharynx normal Eyes General: appearance normal, both eyes and all related structures Pupils: Equal, round and reactive pupils present EOM: EOMs intact bilaterally Neck Neck: Yes normal visual inspection, Yes full ROM and Yes no lymphadenopathy Thyroid: Thyroid normal Resp Effort & Inspection: normal respiratory effort and able to speak in complete sentences Auscultation: clear to auscultation bilaterally (RUL, DAMIAN, LLL ), no crackles, no rales, no rhonchi and wheezes (Right lower lung expiratory wheeze) Cardio Rate: regular rate Rhythm: regular rhythm Heart sounds: S1 normal heart sound present, S2 normal heart sound present and no murmurs GI Palpation (GI): Soft to palpation, not firm, nontender, no guarding, not rigid and no hepatosplenomegaly Auscultation: normal bowel sounds Skin General skin exam: no rashes or lesions noted Neuro General: patient oriented x3 Cranial nerves: Yes Equal, round and reactive pupils present Gait exam (Neuro): Normal gait present Extrem General: Yes full ROM and No edema Office Procedures EKG Details: EKG reviewed by Dr. Hopper. Sinus rhythm, 66 BPM, inferior ST elevation, consider acute ischemia. Results reviewed with the patient, patient transferred to [facility] via ambulance for an evaluation and treatment. [id number], Complete Assessment and Plan Assessment & Plan (1) Hepatomegaly: Code(s): R16.0 - Hepatomegaly, not elsewhere classified Plan: Will check CMP and abdominal ultrasound ordered (2) Liver fibrosis: Code(s): K74.00 - Hepatic fibrosis, unspecified Plan: Same as above (3) Intermittent asthma: Code(s): J45.20 - Mild intermittent asthma, uncomplicated Plan: Right lower lung with expiratory wheezing. Refills given on albuterol nebulizer and inhaler. Start prednisone 40 mg daily for 5 days. (4) Chest heaviness: Code(s): R07.89 - Other chest pain Plan: EKG reviewed by Dr. Hopper. Sinus rhythm, 66 BPM, inferior ST elevation, consider acute ischemia. Results reviewed with the patient, patient transferred to [facility] via ambulance for an evaluation and treatment. Patient was also given aspirin 81 mg PO and nitroglycerin 0.4 mg SL x 1, patient was placed on O2 at 2 L via nasal cannula. Plan Follow-up after hospital visit. Orders: Orders US abdomen complete Today K74.00 - Hepatic fibrosis, unspecified, R16.0 - Hepatomegaly, not elsewhere classified Comprehensive [place]. Panel Fast Today R16.0 - Hepatomegaly, not elsewhere classified Medications: New miscellaneous medical supply nebulizer machine with tubing 1 ea miscellaneous DAILY 1 ea 0RF J45.20 - Mild intermittent asthma, uncomplicated prednisone 40 mg (2 x 20 mg) PO DAILY 5 days 10 tabs 0RF J45.20 - Mild intermittent asthma, uncomplicated miscellaneous medical supply nebulizer machine with tubing 1 ea miscellaneous DAILY 1 ea 0RF J45.20 - Mild intermittent asthma, uncomplicated Refilled albuterol sulfate 2.5 mg (3 mL) inhalation Q6-8H PRN 75 mL 0RF bronchospasm albuterol sulfate 90 mcg/actuation 2 inhalations inhalation Q6-8H PRN 8.5 grams 1RF shortness of breath or wheezing Coding Level of Care Code Est Pt Level 4 (70288) Diagnoses Hepatomegaly R16.0 Liver fibrosis K74.00 Intermittent asthma J45.20 Chest heaviness R07.89 CPT Codes EKG - CPT: 07104-[id number], Complete ([id number]) Additional Codes EVELYNE-7 Assessment Billing - EVELYNE-7 Assessment Tool: EVELYNE-7 Assessment [id number] ([id number])
== END 2022-11-25 10:59 | disposition home or self-care (01) ==
PROVIDERS: Visit Provider Nurse Practitioner Family
DX: R16.0 Hepatomegaly, not elsewhere classified (principal); K74.00 Hepatic fibrosis, unspecified; J45.20 Mild intermittent asthma, uncomplicated; R07.89 Other chest pain
CPT/HCPCS: 93000; 99214

== ENCOUNTER 2022-11-25 11:05 | Emergency (ER) | payer OTHER, SELFPAY ==
--- NOTE | ~2022-11-25 | XR_ITS ---
EXAMINATION: XR CHEST CLINICAL INFORMATION: Chest pain COMPARISON: 06/08/2021 TECHNIQUE: Frontal view of the chest was obtained. FINDINGS: No significant abnormality is noted involving the heart, lungs, mediastinum, bony thorax or soft tissues. Multiple surgical clips are seen in the left upper quadrant. XR/XR chest 1V IMPRESSION: No acute intrathoracic disease.
[2022-11-25 11:16] VITALS: BP 111/58; BP 116/82; PULSE 60; PULSE 74; RESP 13; TEMP 36.7; O2SAT 100; O2SAT 99; BMI 20.4
[2022-11-25 11:21] VITALS: PULSE 64; RESP 15; O2SAT 100
--- NOTE | 2022-11-25 11:35 | ECG_ITS ---
Test Reason : CP Blood Pressure : / mmHG Vent. Rate : 060 BPM Atrial Rate : 060 BPM P-R Int : 140 ms QRS Dur : 090 ms QT Int : 396 ms P-R-T Axes : 057 069 047 degrees QTc Int : 396 ms Normal sinus rhythm Normal ECG When compared with ECG of 05-SEP-2022 16:57, No significant change was found Referred By: Rody Robert Electronically Signed By:FLY ALANIS
--- NOTE | 2022-11-25 11:45 | ED.CHESTPAIN ---
HPI - Chest Pain General Chief Complaint: Recheck/Abnormal Lab/Rx Stated Complaint: EKG ABNORMALITY Time Seen by Provider: 11/25/22 11:11 Source: patient and old records reviewed Mode of arrival: EMS Limitations: no limitations History of Present Illness HPI narrative: 42 yo male hx of bariatric surgery over a year ago doing well, ADELE, asthma just prescribed INH, who has been dealing with a lot of home stress. Gets short of breath with chest tightness due to home stress but not related to exertion. He has no fam hx of early CAD, no risk factors for VTE and no fam hx of dissection. He comes from PCP office due to abnormal EKG. MD complaint: chest pain Onset (ago): month(s) (1) Timing of current episode: episodic Prior episodes: Yes Onset: other (emotional stress) Pain location: substernal Pain radiation: left arm Severity: moderate Quality: tightness Relieving factors: nothing Exacerbating factors: stress Context: other (did have a productive cough) Associated symptoms: dyspnea Treatment prior to arrival: none Related Data Home Medications Medication Instructions Recorded Confirmed one a day MVI PO DAILY 06/18/22 11/25/22 Previous Rx's Medication Instructions Recorded albuterol sulfate 2.5 mg/3 mL 2.5 mg (3 mL) inhalation Q6-8H PRN 11/25/22 (0.083 %) solution for nebulization bronchospasm #75 mL albuterol sulfate 90 mcg/actuation 2 inh inhalation Q6-8H PRN 11/25/22 aerosol inhaler shortness of breath or wheezing #8.5 grams miscellaneous medical supply 1 ea miscellaneous DAILY #1 ea 11/25/22 prednisone 20 mg tablet 40 mg (2 x 20 mg) PO DAILY 5 days 11/25/22 #10 tabs Allergies Allergy/AdvReac Type Severity Reaction Status Date / Time doxycycline [DOXYCYCLINE] Allergy Intermediate LIP Verified 11/25/22 10:18 TINGLING Review of Systems Review of Systems: Constitutional : No Weight loss, No Fever, No Chills ENT/Mouth : No sore throat, No Rhinorrhea Eyes: No Eye Pain, No Swelling Cardiovascular : pos Chest Pain, pos SOB, no Dyspnea on Exertion, No Orthopnea, No Edema, No Palpitations Respiratory : No Cough, No Sputum Gastrointestinal : no Nausea, No Vomiting, No Diarrhea, No abdominal Pain, No Hematochezia, No Melena Genitourinary : No Dysuria, No Urinary Frequency Musculoskeletal : No joint pain, No Myalgias, No Joint Swelling Skin : No Skin Lesions, No rash Neuro : No Weakness, No Numbness, No Dizziness, No Headache Psych : pos Anxiety/Panic, No Depression Heme/Lymph: No Bruising, No Lymphadenopathy Endocrine : No Polyuria, No Polydipsia All other systems reviewed and are negative [facility] Past Medical History Attestation statement: The following information was validated with the patient. Source: old records reviewed Medical History BMI 50.0-59.9, adult Encounter to establish care ADELE (obstructive sleep apnea) Hx of heartburn Anxiety Depression Asthma Obesity Surgical History Status post sleeve gastrectomy History of appendectomy Family History Family History Mother Mental health disorder Substance use disorder Father Mental health disorder Substance use disorder Maternal Grandfather Hypertension Diabetes Hyperlipidemia Paternal Grandfather Myocardial infarct Diabetes Hyperlipidemia Hypertension Paternal Uncle Colon cancer, Onset Age: 50 Maternal Uncle Cancer, Onset Age: 70 Maternal Aunt Substance use disorder Social History Social History Housing: House Are you a primary day care center director to a significant other at home: No Do you presently have visiting nurse or other home services: No Alcohol intake: former Patient Tobacco Use Status: Current everyday Tobacco user Tobacco use type: Cigarette Cigarettes Per Day: 5 Smoked in Last 30 Days: Yes e-Cigarette/Vaping Use: Never Used Second Hand Smoke Exposure: No Use of substances other than those prescribed or required for medical reasons: No Substance Use Type: Marijuana Advance Directives: No service: No Current occupational status: employed Cognitive needs: No Hearing needs: No Vision needs: No Physical Exam Vital Signs: Vital Signs: Last Vital Signs Temp 98.0 F 11/25/22 11:16 Pulse 64 11/25/22 11:21 Resp 15 11/25/22 11:21 BP 111/58 L 11/25/22 11:16 Pulse Ox 100 11/25/22 11:21 O2 Del Method Nasal Cannula 11/25/22 11:21 O2 Flow Rate 1 11/25/22 11:21 BMI result Body Mass Index 20.4 Appearance: Alert. Oriented X3. No acute distress. Eyes: Pupils equal, round and reactive to light. ENT: Pharynx normal. Neck: Normal inspection. Neck supple. CVS: Normal heart rate and rhythm. Pulses normal. Respiratory: No respiratory distress. Breath sounds normal. Abdomen: Soft and nontender. Skin: Skin warm and dry. Normal skin color. Normal skin turgor. Extremities: No lower extremity edema. No calf ttp Neuro: Oriented X 3. No motor deficit. No sensory deficit. Course Course Course Narrative: work up negative stable for DC, did leave prior to CXR was going to be moved to [facility] for DC became insulted and wanted to leave AMA prior to xray read though I see nothing on xray at this time he is stable to leave Medical Decision Making Medical Decision Making [facility] Narrative: 42 yo male with hx of asthma no ACS risk factors, PERC negative, distal pulses intact doubt dissection here with atypical chest pain related to emotinal stress x 1 month not related to exertion sent by PCP for early repolarization on EKG. He has atyipcal chest pain will obtain repeat EKG, CXR, troponin x 1 and refer to cardiology PRN. He was Rx INH already by PCP. Differential Diagnosis Differential Diagnoses: The differential diagnosis associated with the presentation includes anxiety, reactive airway disease, atypical chest pain doubt ACS related to stress, PERC negative doubt VTE, distal pulses intact doubt dissection Admission/Observation Consideration of admission/observation: Escalation of care including admission/observation considered EKG nonischemic trop flat, stable for DC Lab Data [facility] Lab Attestation statement: I reviewed the patient's lab results. 11/25/22 11:48 11/25/22 11:48 Labs: Lab Results 11/25/22 Range/Units 11:48 WBC 7.0 (4.8-10.8) X10*3/uL RBC 4.35 L (4.60-5.80) X10*6/uL Hgb 13.9 L (14.0-18.0) g/dl Hct 39.8 L (42.0-52.0) % MCV 91.5 (80.0-98.0) fL MCH 32.0 (27.0-33.0) pg MCHC 34.9 (31.0-36.0) g/dl RDW 11.9 (11.0-16.0) % Plt Count 239 (160-400) X10*3/uL MPV 8.5 L (9.4-12.4) fL Immature Gran % (Auto) 0.3 (0.0-0.4) % Neut % (Auto) 63.5 (45-73) % Lymph % (Auto) 27.9 (20-40) % [place]ata[place] % (Auto) 7.3 (2-11) % Eos % (Auto) 0.7 (0-4) % Baso % (Auto) 0.3 (0-2) % Lymph # (Auto) 1.9 (1.2-4.9) X10*3/uL [place] # (Auto) 0.5 (0.1-1.2) X10*3/uL Eos # (Auto) 0.1 (0.0-0.4) X10*3/uL Baso # (Auto) 0.0 (0.0-0.2) X10*3/uL Abs Immat Gran (auto) 0.02 (0.00-0.03) X10*3/uL Absolute Neuts (auto) 4.4 (2.0-8.3) x10*3/uL Absolute Nucleated RBC 0.000 (0.0-0.012) X10*3/uL Nucleated RBC % (auto) 0.0 (0.0-0.2) /100WBC Sodium 139 (135-145) mmol/L Potassium 4.4 (3.3-5.1) mmol/L Chloride 105 (96-108) mmol/L Carbon Dioxide 29 (22-29) mmol/L Anion Gap 9 L (12-20) BUN 16 (9-16) mg/dL Creatinine 0.63 (0.5-1.4) mg/dL Estim Creat Clear Calc 140.7 Estimated GFR > 60 Random Glucose 85 (60-115) mg/dL Calcium 9.1 (8.4-10.2) mg/dL Magnesium 2.0 (1.6-2.6) mg/dL Total Bilirubin 0.4 (0.0-1.0) mg/dL Direct Bilirubin 0.2 (0.0-0.5) mg/dL AST 16 (5-37) U/L ALT 22 (0-40) U/L Alkaline Phosphatase 42 (39-117) U/L Troponin I High Sens < 2.7 (<3.5-35.0) ng/L Total Protein 6.4 L (6.5-8.0) g/dL Albumin 3.9 (3.5-5.0) g/dL Independent Interpretation I performed an independent interpretation of an: EKG and Plain X-Ray (normal ) Interpretation: Rate: 60 Rhythm: NSR [place]: normal Normal P waves. Normal BETH. Normal QRS complex. ST T wave : no ANGIE, early repolarization noted qTC: normal prior studies: no acute ischemia The study has been interpreted contemporaneously by me. . Radiology Impression Discussion of test interpretation with radiology: I have reviewed the radiologist's reading. Independent Historian Clinical information obtained from an independent historian. History obtained from or confirmed by: EMS External Record Review External record reviewed: Office record and Outside ED record Prescription Management I considered prescription management with: Other Discharge Plan Discharge Clinical Impression: Atypical chest pain Patient Disposition: Home, Self-Care Instructions: Chest Pain (ED) Additional Instructions: use your inhaler return for worsening symptoms, dizziness, fainting, increased pain, shortness of breath on exertion or any other issues. can follow up with cardiology or PCP for outpatient stress test your chest xray was not formally read by radiologist but if abnormal we will call you. Prescriptions: No Action albuterol sulfate 2.5 mg /3 mL (0.083 %) solution for nebulization 2.5 mg inhalation Q6-8H PRN (Reason: bronchospasm) Qty: 75 0RF albuterol sulfate 90 mcg/actuation HFA aerosol inhaler 2 inh inhalation Q6-8H PRN (Reason: shortness of breath or wheezing) Qty: 8.5 1RF miscellaneous medical supply Misc 1 ea miscellaneous DAILY Qty: 1 0RF Rx Instructions: nebulizer machine with tubing prednisone 20 mg tablet 40 mg PO DAILY 5 Days Qty: 10 0RF one a day MVI PO DAILY Referrals: Pawan Burton MD [Physician] - (information systems auditor may need PCP referral for stress test) Stand Alone Forms: Work/School Release
[2022-11-25 12:00] LABS: MANUAL DIFF FLAG NO
--- NOTE | 2022-11-25 12:02 | PC.NURSE ---
pt stable, a&o x4, calm, pleasant, cooperative. comes in for EKG changes from pcp office. repeat EKG and labs sent. pt placed on secured entrance monitor. no other concerns leonora. call pineda within pt reach. rr even/unlabored.
[2022-11-25 12:03] LABS: Basophils Percent Auto 0.3 % (0-2); Eosinophils Absolute Auto 0.1 X10*3/uL (0.0-0.4); Eosinophils Percent Auto 0.7 % (0-4); Hematocrit 39.8 % (42.0-52.0); Hemoglobin 13.9 g/dl (14.0-18.0); Imm Gran Abs Auto 0.02 X10*3/uL (0.00-0.03); Imm Gran Pct Auto 0.3 % (0.0-0.4); Lymphocytes Absolute Auto 1.9 X10*3/uL (1.2-4.9); Lymphocytes Percent Auto 27.9 % (20-40); Mean Corpuscular HGB Conc 34.9 g/dl (31.0-36.0); Mean Corpuscular Volume 91.5 fL (80.0-98.0); Mean Platelet Volume 8.5 fL (9.4-12.4); Monocytes Absolute Auto 0.5 X10*3/uL (0.1-1.2); Monocytes Percent Auto 7.3 % (2-11); Neutrophils Absolute Auto 4.4 x10*3/uL (2.0-8.3); Neutrophils Percent Auto 63.5 % (45-73); Platelet Count 239 X10*3/uL (160-400); Red Blood Count 4.35 X10*6/uL (4.60-5.80); Red Cell Distribution Width 11.9 % (11.0-16.0)
[2022-11-25 12:16] LABS: Alanine Aminotransferase 22 U/L (0-40); Albumin Level 3.9 g/dL (3.5-5.0); Alkaline Phosphatase 42 U/L (39-117); Anion Gap 9 (12-20); Aspartate Amino Transferase 16 U/L (5-37); Bilirubin Direct 0.2 mg/dL (0.0-0.5); Bilirubin Total 0.4 mg/dL (0.0-1.0); Blood Urea Nitrogen 16 mg/dL (9-16); Calcium 9.1 mg/dL (8.4-10.2); Carbon Dioxide 29 mmol/L (22-29); Chloride 105 mmol/L (96-108); Creatinine Clr Calc Pharmacy 140.7; Estimated Glomerular Filt Rate > 60; Glucose Random 85 mg/dL (60-115); Potassium 4.4 mmol/L (3.3-5.1); Sodium 139 mmol/L (135-145); Total Protein 6.4 g/dL (6.5-8.0)
[2022-11-25 12:25] LABS: Troponin-I High Sensitivity < 2.7 ng/L (<3.5-35.0)
[2022-11-25 13:10] VITALS: BP 123/76; PULSE 63; RESP 12; TEMP 36.6; O2SAT 100
--- NOTE | 2022-11-25 13:22 | PC.NURSE ---
pt sts he wants to leave after tech asked to move his bed to the hallway so that they could place a catheter for pt in 6H that needed privacy. pt sts this place treats people like a car show, moving people in and out of rooms. it's insulting pt getting agitated and disrespectful towards this RN. Dr. Robert aware and going to discharge pt due to lab results and normal EKG.
== END 2022-11-25 13:25 | disposition home or self-care (01) ==
PROVIDERS: Emergency Provider Emergency Medicine
DX: R07.89 Other chest pain (principal); F17.210 Nicotine dependence, cigarettes, uncomplicated; F12.90 Cannabis use, unspecified, uncomplicated
CPT/HCPCS: 36415; 71045; 80048; 80076; 83735; 84484; 85025; 93005; 99283; 99284

== ENCOUNTER 2023-07-21 09:17 | Outpatient (AMB) | payer OTHER, SELFPAY ==
--- NOTE | 2023-07-21 09:36 | A.OFFPC_ITS ---
Vital Signs 07/21/23 09:39 Height 5 ft 10 in Weight 175 lb 8 oz BMI 25.2 BP 110/62 Blood Pressure Location Lt brachial Position Sitting Pulse 101 H Pulse Source Pulse Oximeter Pulse Oximetry (%) 95 Oxygen Delivery Method Room Air Intake Visit Reasons: Re-establish Care B.S pt Intake Note: Patient is here to follow up on KIANA from B.S. Weld Fitter Required: No Mental Telepathist: Not Required per policy Accompanied by: Self / Same As Patient Allergies doxycycline [DOXYCYCLINE] Allergy (Intermediate, Verified 07/21/23 10:31) LIP TINGLING Medication List - Last Reconciled 07/21/23 by Jeremiah Hopper MD albuterol sulfate 2.5 mg (3 mL) inhalation Q6-8H PRN albuterol sulfate 90 mcg/actuation 2 inhalations inhalation Q6-8H PRN miscellaneous medical supply 1 ea miscellaneous DAILY [one a day MVI PO DAILY] Tobacco use date assessed: 07/21/23 Dental Screening Dental Screen Date: 07/21/23 Did you have a dental visit in the last 12 months?: Yes Did you have a dental problem in the last 6 months where you did not have access to dental care?: No Was dental information given to patient?: Patient has dentist HPI Re-establish Care B.S pt HPI Details 42-year-old male presents to the office to discuss his medical issues. I will be assuming his care as his provider has left the practice. Patient underwent a sleeve gastrectomy and has lost more than 200 lb. He is continuing to do well and following the diet established. Continues to smoke 10 cigarettes a day. Requesting a refill on albuterol. [facility] Medical History (Updated 07/21/23 @ 10:39 by Jeremiah Hopper MD) Tobacco use disorder Severe sleep apnea Sleep apnea ADELE (obstructive sleep apnea) Hx of heartburn Anxiety Depression Asthma Obesity Surgical History History of wisdom tooth extraction Status post sleeve gastrectomy History of appendectomy Family History Mother Mental health disorder Substance use disorder Father Mental health disorder Substance use disorder Maternal Grandfather Hypertension Diabetes Hyperlipidemia Paternal Grandfather Myocardial infarct Diabetes Hyperlipidemia Hypertension Paternal Uncle Colon cancer, Onset Age: 50 Maternal Uncle Cancer, Onset Age: 70 Maternal Aunt Substance use disorder Social History Housing: House Are you a primary healthcare educator to a significant other at home: No Do you presently have visiting nurse or other home services: No Alcohol intake: former Patient Tobacco Use Status: Current everyday Tobacco user Tobacco use type: Cigarette Cigarette Packs Per Day: 0.5 Cigarettes Per Day: 10 e-Cigarette/Vaping Use: Never Used Second Hand Smoke Exposure: Yes Substance Use Type: Marijuana service: No Current occupational status: employed Cognitive needs: No Hearing needs: No Vision needs: No Questionnaire PHQ-9 Over the last 2 weeks, how often have you been bothered by any of the following problems? 1. Little interest or pleasure in doing things: not at all 2. Feeling down, depressed, or hopeless: not at all 3. Trouble falling or staying asleep, or sleeping too much: not at all 4. Feeling tired or having little energy: not at all 5. Poor appetite or overeating: not at all 6. Feeling bad about yourself - or that you are a failure or have let yourself or your family down: not at all 7. Trouble concentrating on things, such as reading the newspaper or watching television: not at all 8. Moving or speaking so slowly that other people could have noticed. Or the opposite - being so fidgety or restless that you have been moving around a lot more than usual: not at all 9. Thoughts that you would be better off or of hurting yourself in some way: not at all Total score: 0 Depression Screening Interpretation: Negative Depression Screening Done: Yes Source: Developed by Drs. Sylvester Lowe, Lakeshia Ahmadi, Shravan Ace and colleagues, with an educational mohan from [employer]. Thrive Questionnaire Date Thrive assessed: 07/21/23 I am a: Patient What is your living situation today?: I have a steady place to live Within the past 12 months, did the food you bought not last and you didn't have the money to get more?: Never true Within the past 12 months, did you worry whether your food would run out before you got money to buy more?: Never true Do you have trouble paying for medicines?: No Do you have trouble getting transportation to medical appointments?: No Do you have trouble paying your heating and electricity bill?: No Do you have trouble taking care of your child, family member or friend?: No Do you have trouble with day-to-day activities such as bathing, preparing meals, shopping, managing finances, etc.?: No Are you currently unemployed and looking for a job?: No Are you interested in more education?: No Currently or been in a relationship where the following occur: no concerns reported THRIVE Score: 0 AUDIT C Alcohol Use Questionnaire (AUDIT-C) 1. How often do you have a drink containing alcohol?: Never Total Score: 0 EVELYNE-7 AMB Questionnaire EVELYNE-7 Date EVELYNE - 7 assessed: 07/21/23 Feeling nervous, anxious, or on edge: 0 = Not at all Not being able to stop or control worryin = Not at all Worrying too much about different things: 0 = Not at all Trouble relaxin = Not at all Being so restless that it is hard to sit still: 0 = Not at all Becoming easily annoyed or irritable: 0 = Not at all Feeling afraid as if something awful might happen: 0 = Not at all Total EVELYNE-7 score (0-4 normal; 5-9 mild; 10-14 moderate; 15-21 severe): 0 Source: Developed by Drs. Sylvester Lowe, Lakeshia Ahmadi, Shravan Ace and colleagues, with an educational mohan from [employer]. Physical exam (Primary Care) Vital Signs: Last Vital Signs Pulse 101 H 07/21/23 09:39 BP 110/62 07/21/23 09:39 Pulse Ox 95 07/21/23 09:39 Oxygen Delivery Method Room Air 07/21/23 09:39 Care Plan Goal for BP management: Blood pressure is in range. BMI result Body Mass Index 25.2 Tobacco/Smoking Status: Tobacco use Status Tobacco use date assessed 07/21/23 07/21/23 09:45 Patient Tobacco Use Status Current everyday Tobacco 07/21/23 09:45 Tobacco use type Cigarette 07/21/23 09:45 e-Cigarette/Vaping Use Never Used 07/21/23 09:45 PHQ-9: PHQ-9 Score PHQ-9: Total score 0 07/21/23 09:45 Depression Screening Interpretation: Negative Thrive Assessment: Date of Thrive Assessment Date Thrive assessed 07/21/23 07/21/23 09:45 Currently or been in a relationship where the following occur: no concerns reported Const General: cooperative and healthy appearing Nutritional Appearance: well nourished Orientation/consciousness: patient oriented x3 Limitations: no limitations HENMT Head: Yes normal to inspection Eyes General: appearance normal, both eyes and all related structures Neck Neck: Yes normal visual inspection Chest Chest palpation & inspection: normal palpation of entire chest wall Resp Effort & Inspection: normal respiratory effort Neuro General: patient oriented x3 Assessment and Plan Assessment & Plan (1) Intermittent asthma: Code(s): J45.20 - Mild intermittent asthma, uncomplicated Plan: Inhalers have been ordered. (2) Mild recurrent major depression: Code(s): F33.0 - Major depressive disorder, recurrent, mild Plan: Condition is stable without any medications. (3) Tobacco use disorder: Code(s): F17.200 - Nicotine dependence, unspecified, uncomplicated Plan: Patient was encouraged to quit smoking. Medications: Refilled albuterol sulfate 90 mcg/actuation 2 inhalations inhalation Q6-8H PRN 8.5 grams 1RF shortness of breath or wheezing Coding Level of Care Code Est Pt Level 4 (49129) Diagnoses Intermittent asthma J45.20 Mild recurrent major depression F33.0 Tobacco use disorder F17.200
[2023-07-21 09:39] VITALS: BP 110/62; PULSE 101; O2SAT 95; BMI 25.2
== END 2023-07-21 11:38 | disposition home or self-care (01) ==
PROVIDERS: PCP Internal Medicine; Visit Provider Internal Medicine
DX: J45.20 Mild intermittent asthma, uncomplicated (principal); F33.0 Major depressive disorder, recurrent, mild; F17.210 Nicotine dependence, cigarettes, uncomplicated
CPT/HCPCS: 99214